=== PATIENT | male | born 1945 | race Caucasian/White ===

== ENCOUNTER 2017-12-12 16:13 | Inpatient (IN) | payer MEDICARE ==
[~2017-12-12] VITALS: Ht 162.6 cm; Wt 70.1 kg
[~2017-12-12 16:13] MED LIST: COZAAR100 MG PO; INVOKANA100 MG PO; JARDIANCE25 MG PO; LEVAQUIN750 MG PO; LEVOXYL25 MCG PO; PERCOCET 10/3251 TA1 PO; TRESIBA; tresiba INJ
[2017-12-12 18:09] LABS: EOSINOPHILS 1.9 % (0-7); HEMATOCRIT 34.1 % (42.0-54.0); HEMOGLOBIN 12.1 g/dL (13.5-17.5); IMMATURE GRANULOCYTES 0.3 % (0-5); LYMPHOCYTES 38.4 % (15-50); MCH 30.7 pg (26.0-34.0); MCHC 35.5 g/dL (31.0-37.0); MCV 86.5 fL (80.0-100.0); MEAN PLATELET VOLUME 9.4 fL (7.4-10.4); MONOCYTES 10.4 % (2-11); PLATELET COUNT 191 10x3/uL (130-400); RBC 3.94 10x6/uL (4.20-6.10); RDW 12.4 % (11.5-14.5); WBC 5.9 10x3/uL (4.8-10.8)
[2017-12-12 18:26] LABS: ALBUMIN 2.7 g/dL (3.4-5.0); ALKALINE PHOSPHATASE 91 U/L (46-116); ALT (SGPT) 70 U/L (10-68); CALC OSMOLALITY 274 mosm/kg (275-300); CALCIUM 8.1 mg/dL (8.5-10.1); CHLORIDE - SERUM 100 mmol/L (98-107); CREATININE - SERUM 0.7 mg/dL (0.6-1.3); GLUCOSE 289 mg/dL (74-106); POTASSIUM - SERUM 3.6 mmol/L (3.5-5.1); PROTEIN - SERUM 5.6 g/dL (6.4-8.2); SODIUM 132 mmol/L (136-145); UREA NITROGEN 11 mg/dL (7-18); eGFR NON AFRICAN AMERICAN > 90 mL/min (90-120)
[2017-12-12] MEDS ORDERED: EDARBYCLOR 40-1 EAC1 PO (19:39)
[2017-12-12] MEDS ORDERED: JANUMET XR 50-1 EACH PO (19:39)
[2017-12-12 20:00] VITALS: BP 110/57
[2017-12-12 22:48] LABS: APPEARANCE CLEAR (CLEAR); BILIRUBIN NEGATIVE (NEGATIVE); COLOR YELLOW (YELLOW); GLUCOSE 1000 mg/dL (NEGATIVE); KETONE NEGATIVE (NEGATIVE); NITRITE NEGATIVE (NEGATIVE); PROTEIN NEGATIVE (NEGATIVE); UROBILINOGEN NORMAL (NORMAL)
[2017-12-12 22:49] LABS: BACTERIA FEW /hpf (NONE SEEN); RED CELLS - URINE 0-5 /hpf (0-5); WHITE CELLS - URINE 0-5 /hpf (0-5); YEAST <1+ /hpf (NONE SEEN)
[2017-12-13 04:00] VITALS: BP 141/83
[2017-12-13 06:26] LABS: EOSINOPHILS 3.1 % (0-7); HEMATOCRIT 34.1 % (42.0-54.0); HEMOGLOBIN 12.4 g/dL (13.5-17.5); IMMATURE GRANULOCYTES 0.3 % (0-5); LYMPHOCYTES 41.8 % (15-50); MCH 31.5 pg (26.0-34.0); MCHC 36.4 g/dL (31.0-37.0); MCV 86.5 fL (80.0-100.0); MEAN PLATELET VOLUME 9.5 fL (7.4-10.4); MONOCYTES 6.7 % (2-11); NEUTROPHILS 47.1 % (40-80); PLATELET COUNT 177 10x3/uL (130-400); RBC 3.94 10x6/uL (4.20-6.10); RDW 12.6 % (11.5-14.5); WBC 5.9 10x3/uL (4.8-10.8)
[2017-12-13 06:43] LABS: CALC OSMOLALITY 274 mosm/kg (275-300); CALCIUM 8.1 mg/dL (8.5-10.1); CARBON DIOXIDE 28.9 mmol/L (21.0-32.0); CHLORIDE - SERUM 103 mmol/L (98-107); CREATININE - SERUM 0.6 mg/dL (0.6-1.3); POTASSIUM - SERUM 3.3 mmol/L (3.5-5.1); SODIUM 136 mmol/L (136-145); UREA NITROGEN 11 mg/dL (7-18); eGFR NON AFRICAN AMERICAN > 90 mL/min (90-120)
[2017-12-13 06:45] LABS: GLUCOSE 172 mg/dL (74-106)
[2017-12-13 09:03] VITALS: BP 157/91
[2017-12-13 11:04] VITALS: BP 136/77
[2017-12-13 13:08] LABS: CKMB 1.2 U/L (0.0-3.6); CREATINE KINASE 51 UL (21-232)
[2017-12-13 13:16] LABS: TROPONIN-I < 0.017 ng/mL (0.000-0.060)
[2017-12-13 13:22] VITALS: Ht 162.6 cm; Wt 70.1 kg
[2017-12-13 15:26] VITALS: BP 112/73
[2017-12-13 17:57] LABS: CKMB 0.9 U/L (0.0-3.6); CREATINE KINASE 55 UL (21-232)
[2017-12-13 17:58] LABS: TROPONIN-I < 0.017 ng/mL (0.000-0.060)
[2017-12-13 20:00] VITALS: BP 119/59
[2017-12-13 20:37] VITALS: BP 139/48
[2017-12-13 23:56] LABS: CKMB 0.8 U/L (0.0-3.6); CREATINE KINASE 42 UL (21-232)
[2017-12-13 23:57] LABS: TROPONIN-I < 0.017 ng/mL (0.000-0.060)
[2017-12-14] VITALS (7 sets, daily range): BP systolic 114–156; BP diastolic 69–85
[2017-12-14 06:26] LABS: BASOPHILS 1.3 % (0-2); EOSINOPHILS 3.3 % (0-7); HEMATOCRIT 36.3 % (42.0-54.0); HEMOGLOBIN 12.7 g/dL (13.5-17.5); IMMATURE GRANULOCYTES 0.3 % (0-5); LYMPHOCYTES 45.5 % (15-50); MCH 30.7 pg (26.0-34.0); MCV 87.7 fL (80.0-100.0); MEAN PLATELET VOLUME 9.9 fL (7.4-10.4); NEUTROPHILS 40.6 % (40-80); PLATELET COUNT 207 10x3/uL (130-400); RBC 4.14 10x6/uL (4.20-6.10); RDW 12.9 % (11.5-14.5); WBC 6.1 10x3/uL (4.8-10.8)
[2017-12-14 06:43] LABS: ALBUMIN 2.4 g/dL (3.4-5.0); ALKALINE PHOSPHATASE 83 U/L (46-116); ALT (SGPT) 62 U/L (10-68); BILIRUBIN - TOTAL 0.38 mg/dL (0.2-1.3); CALC OSMOLALITY 276 mosm/kg (275-300); CALCIUM 8.1 mg/dL (8.5-10.1); CARBON DIOXIDE 28.7 mmol/L (21.0-32.0); CHLORIDE - SERUM 105 mmol/L (98-107); CREATININE - SERUM 0.5 mg/dL (0.6-1.3); MAGNESIUM - SERUM 1.7 mg/dL (1.8-2.4); POTASSIUM - SERUM 3.5 mmol/L (3.5-5.1); PROTEIN - SERUM 5.3 g/dL (6.4-8.2); SODIUM 139 mmol/L (136-145); UREA NITROGEN 10 mg/dL (7-18); eGFR NON AFRICAN AMERICAN > 90 mL/min (90-120)
[2017-12-14 06:44] LABS: GLUCOSE 95 mg/dL (74-106)
[2017-12-14] MEDS ORDERED: KEFLEX500 MG PO (12:55)
== END 2017-12-14 16:20 | disposition home or self-care (01) | DRG 638 ==
LOC: D.M2 16:13
PROVIDERS: Emergency Medicine; Family Medicine
DX: E11.65 Type 2 diabetes mellitus with hyperglycemia (principal); N39.0 Urinary tract infection, site not specified; I10 Essential (primary) hypertension; L08.89 Other specified local infections of the skin and subcutaneous tissue; Z91.81 History of falling; R42 Dizziness and giddiness; E03.9 Hypothyroidism, unspecified

== ENCOUNTER → 2019-01-29 19:50 | Outpatient (CLI) | payer MEDICARE ==
[2017-12-13 13:22] VITALS: BMI 26.5
[~2019-01-29 19:50] MED LIST changes: +EDARBYCLOR 40-1 EAC1 PO; +JANUMET XR 50-1 EACH PO; +KEFLEX500 MG PO
== END | disposition home or self-care (01) ==
LOC: D.LABREF 19:50
PROVIDERS: ATTEND Podiatrist Foot & Ankle Surgery
DX: M86.171 Other acute osteomyelitis, right ankle and foot (principal)

== ENCOUNTER → 2019-08-30 01:04 | Outpatient (CLI) | payer MEDICARE ==
[2017-12-13 13:22] VITALS: BMI 26.5
== END | disposition home or self-care (01) ==
LOC: D.LABREF 01:04
PROVIDERS: ATTEND Podiatrist Foot & Ankle Surgery
DX: L97.516 Non-pressure chronic ulcer of other part of right foot with bone involvement without evidence of necrosis (principal); E11.621 Type 2 diabetes mellitus with foot ulcer

== ENCOUNTER 2019-09-09 05:37 | Day surgery (SDC) | payer MEDICARE ==
[~2019-09-09] VITALS: Ht 162.6 cm; Wt 70.3 kg
[2019-09-09 06:08] LABS: HEMATOCRIT 37.8 % (42.0-54.0); HEMOGLOBIN 12.6 g/dL (13.5-17.5); MCH 29.2 pg (26.0-34.0); MCHC 33.3 g/dL (31.0-37.0); MCV 87.5 fL (80.0-100.0); RBC 4.32 10x6/uL (4.20-6.10); RDW 12.5 % (11.5-14.5); WBC 8.5 10x3/uL (4.8-10.8)
[2019-09-09 06:21] LABS: CALC OSMOLALITY 272 mosm/kg (275-300); CALCIUM 8.9 mg/dL (8.5-10.1); CHLORIDE - SERUM 97 mmol/L (98-107); CREATININE - SERUM 0.8 mg/dL (0.6-1.3); POTASSIUM - SERUM 4.1 mmol/L (3.5-5.1); SODIUM 132 mmol/L (136-145); UREA NITROGEN 16 mg/dL (7-18); eGFR NON AFRICAN AMERICAN > 90 mL/min (90-120)
[2019-09-09 06:22] LABS: GLUCOSE 224 mg/dL (74-106)
[2019-09-09] MEDS ORDERED: IBUPROFEN600 MG PO (06:32)
[2019-09-09] MEDS ORDERED: JANUMET 50-1,01 EAC1 PO (06:32)
[2019-09-09] MEDS ORDERED: BACTRIM DS TAB1 EAC1 PO (06:33)
[2019-09-09] MEDS ORDERED: SOLIQUA 100 UNIT3 ML SQ (06:34)
[2019-09-09] MEDS ORDERED: APIDRA SOL100 UNIT/1 SQ (06:34)
[2019-09-09] MEDS ORDERED: NUFOLA (06:34)
[2019-09-09 07:03] VITALS: BP 183/95; Ht 162.6 cm; Wt 70.3 kg
--- NOTE | 2019-09-09 10:39 | NUR ---
1020 PT IS DRESSED AND HIS RIDE IS HERE RELEASED IN WC TO FRONT, REVIEWED WITH HIS RIDE HIS DC INSTRUCTIONS.
== END 2019-09-09 10:20 | disposition home or self-care (01) ==
LOC: D.OPS 05:37 → D.PAN 07:00 → D.OPS 10:20
PROVIDERS: Anesthesiology; ATTEND Podiatrist Foot & Ankle Surgery
DX: L03.115 Cellulitis of right lower limb (principal); I96 Gangrene, not elsewhere classified; M86.9 Osteomyelitis, unspecified; E11.9 Type 2 diabetes mellitus without complications

== ENCOUNTER 2019-11-01 17:21 | Emergency (ER) | payer MEDICARE ==
[~2019-11-01] VITALS: Ht 162.6 cm; Wt 68.2 kg
[~2019-11-01 17:21] MED LIST changes: +APIDRA SOL100 UNIT/1 SQ; +BACTRIM DS TAB1 EAC1 PO; +IBUPROFEN600 MG PO; +JANUMET 50-1,01 EAC1 PO; +NUFOLA; +SOLIQUA 100 UNIT3 ML SQ
[2019-11-01 17:46] VITALS: Ht 162.6 cm; Wt 68.2 kg
[2019-11-01 18:19] LABS: BASOPHILS 0.4 % (0-2); EOSINOPHILS 0.5 % (0-7); HEMATOCRIT 37.3 % (42.0-54.0); HEMOGLOBIN 12.7 g/dL (13.5-17.5); LYMPHOCYTES 17.4 % (15-50); MCH 29.4 pg (26.0-34.0); MCV 86.3 fL (80.0-100.0); MEAN PLATELET VOLUME 9.2 fL (7.4-10.4); MONOCYTES 6.8 % (2-11); NEUTROPHILS 74.9 % (40-80); PLATELET COUNT 245 10x3/uL (130-400); RBC 4.32 10x6/uL (4.20-6.10); RDW 13.5 % (11.5-14.5); WBC 5.6 10x3/uL (4.8-10.8)
[2019-11-01 18:28] LABS: CALC OSMOLALITY 280 mosm/kg (275-300); CALCIUM 8.8 mg/dL (8.5-10.1); CARBON DIOXIDE 32.4 mmol/L (21.0-32.0); CHLORIDE - SERUM 97 mmol/L (98-107); CREATININE - SERUM 0.8 mg/dL (0.6-1.3); GLUCOSE 197 mg/dL (74-106); POTASSIUM - SERUM 3.1 mmol/L (3.5-5.1); SODIUM 137 mmol/L (136-145); UREA NITROGEN 17 mg/dL (7-18); eGFR NON AFRICAN AMERICAN > 90 mL/min (90-120)
[2019-11-01 18:34] LABS: ALBUMIN 3.1 g/dL (3.4-5.0); ALKALINE PHOSPHATASE 113 U/L (30-120); ALT (SGPT) 37 U/L (10-68); AMYLASE - SERUM 23 U/L (25-115); PROTEIN - SERUM 7.3 g/dL (6.4-8.2)
[2019-11-01 18:36] LABS: LIPASE 11 U/L (73-393)
[2019-11-01] MEDS ORDERED: MIRALAX17 GM PO (20:40)
[2019-11-01 20:55] VITALS: BP 133/76
== END 2019-11-01 20:55 | disposition home or self-care (01) ==
LOC: D.ER 17:21
PROVIDERS: Family Medicine
DX: K59.00 Constipation, unspecified (principal); R10.9 Unspecified abdominal pain; E11.9 Type 2 diabetes mellitus without complications; E03.9 Hypothyroidism, unspecified; Z79.4 Long term (current) use of insulin; R11.10 Vomiting, unspecified

== ENCOUNTER 2019-11-05 09:50 | Inpatient (IN) | payer MEDICARE ==
[~2019-11-05] VITALS: Ht 162.6 cm; Wt 61.2 kg
[~2019-11-05 09:50] MED LIST changes: +MIRALAX17 GM PO; -NUFOLA; +NUFOLA PO
[2019-11-05] MEDS ORDERED: AMITIZA24 MCG PO (10:06)
[2019-11-05] MEDS ORDERED: VALTREX1000 MG PO (10:06)
[2019-11-05] MEDS ORDERED: XIGDUO XR PO (10:07)
[2019-11-05] MEDS ORDERED: XIGDUO XR 5 MG1 EAC1 (10:08)
[2019-11-05 11:09] LABS: BASOPHILS 0.5 % (0-2); EOSINOPHILS 0 % (0-7); HEMATOCRIT 38.8 % (42.0-54.0); HEMOGLOBIN 13.2 g/dL (13.5-17.5); IMMATURE GRANULOCYTES 0.3 % (0-5); LYMPHOCYTES 16.9 % (15-50); MCH 29.2 pg (26.0-34.0); MCV 85.8 fL (80.0-100.0); MEAN PLATELET VOLUME 8.8 fL (7.4-10.4); MONOCYTES 15.9 % (2-11); NEUTROPHILS 66.4 % (40-80); PLATELET COUNT 209 10x3/uL (130-400); RBC 4.52 10x6/uL (4.20-6.10); RDW 13.3 % (11.5-14.5); WBC 6.6 10x3/uL (4.8-10.8)
[2019-11-05 11:15] LABS: CALC OSMOLALITY 264 mosm/kg (275-300); CALCIUM 8.4 mg/dL (8.5-10.1); CARBON DIOXIDE 33.5 mmol/L (21.0-32.0); CHLORIDE - SERUM 89 mmol/L (98-107); CREATININE - SERUM 0.9 mg/dL (0.6-1.3); POTASSIUM - SERUM 3.5 mmol/L (3.5-5.1); SODIUM 124 mmol/L (136-145); UREA NITROGEN 20 mg/dL (7-18); eGFR NON AFRICAN AMERICAN 88 mL/min (90-120)
[2019-11-05 11:16] LABS: GLUCOSE 314 mg/dL (74-106)
[2019-11-05 11:30] LABS: ALBUMIN 3.1 g/dL (3.4-5.0); ALKALINE PHOSPHATASE 101 U/L (30-120); ALT (SGPT) 29 U/L (10-68); CREATINE KINASE 97 UL (21-232); PROTEIN - SERUM 7.1 g/dL (6.4-8.2); THYROID STIMULATING HORMONE 2.42 uIU/mL (0.36-3.74); TROPONIN-I < 0.017 ng/mL (0.000-0.060)
[2019-11-05 11:31] LABS: LIPASE 15 U/L (73-393)
[2019-11-05 12:00] VITALS: BP 157/85
--- NOTE | 2019-11-05 13:00 | NUR ---
FSBS 301
--- NOTE | 2019-11-05 13:21 | NUR ---
BLADDER SCAN SHOWED 669 ML OF URINE
[2019-11-05 13:53] LABS: BILIRUBIN NEGATIVE (NEGATIVE); KETONE NEGATIVE (NEGATIVE); NITRITE NEGATIVE (NEGATIVE); UROBILINOGEN NORMAL (NORMAL)
[2019-11-05 14:05] VITALS: BP 126/87
--- NOTE | 2019-11-05 14:15 | NUR ---
REPORT CALLED TO HESHAM ELLISON. REPORTED SHINGLES AND READIED PT FOR TRANSPORT FOR ISOLATION.
[2019-11-05 15:51] VITALS: BP 126/88; BMI 23.2
[2019-11-05 17:26] VITALS: BP 102/60
--- NOTE | 2019-11-05 19:23 | NUR ---
REPORT RECEIVED, WILL CONTINUE POC. PATIENT IS AAOX4, SITTING UP IN BED. NO S/S OF DISTRESS OBSERVED, RR EVEN AND UNLABORED ON ROOM AIR. PIV TO LT HAND INFUSING NS @ 75ML/HR. PATIENT DENIES NEEDS AT THIS TIME. CL IN REACH, BED LOCKED AND LOWERED. DROPLET PRECAUTIONS MAINTAINED. WILL CTM.
[2019-11-05 22:45] VITALS: BP 135/75
[2019-11-06 04:00] VITALS: BP 123/75
[2019-11-06 05:11] LABS: BASOPHILS 0.7 % (0-2); EOSINOPHILS 0.4 % (0-7); HEMATOCRIT 38.4 % (42.0-54.0); HEMOGLOBIN 12.9 g/dL (13.5-17.5); IMMATURE GRANULOCYTES 0.4 % (0-5); LYMPHOCYTES 25.8 % (15-50); MCH 28.9 pg (26.0-34.0); MCHC 33.6 g/dL (31.0-37.0); MCV 85.9 fL (80.0-100.0); MEAN PLATELET VOLUME 9.1 fL (7.4-10.4); MONOCYTES 17.8 % (2-11); NEUTROPHILS 54.9 % (40-80); PLATELET COUNT 207 10x3/uL (130-400); RBC 4.47 10x6/uL (4.20-6.10); RDW 13.5 % (11.5-14.5)
[2019-11-06 05:27] LABS: WBC 8.3 10x3/uL (4.8-10.8)
[2019-11-06 05:32] LABS: CALC OSMOLALITY 258 mosm/kg (275-300); CALCIUM 8.3 mg/dL (8.5-10.1); CARBON DIOXIDE 33.2 mmol/L (21.0-32.0); CHLORIDE - SERUM 92 mmol/L (98-107); CREATININE - SERUM 0.8 mg/dL (0.6-1.3); MAGNESIUM - SERUM 1.9 mg/dL (1.8-2.4); PHOSPHOROUS 2.9 mg/dL (2.5-4.9); POTASSIUM - SERUM 3.7 mmol/L (3.5-5.1); SODIUM 128 mmol/L (136-145); UREA NITROGEN 18 mg/dL (7-18); eGFR NON AFRICAN AMERICAN > 90 mL/min (90-120)
[2019-11-06 05:47] LABS: GLUCOSE 107 mg/dL (74-106)
[2019-11-06 10:21] VITALS: BP 100/52
[2019-11-06 12:40] VITALS: Ht 162.6 cm; Wt 61.2 kg
--- NOTE | 2019-11-06 19:15 | NUR ---
REPORT RECEIVED, WILL CONTINUE POC. PATIENT IS AAOX4, LYING IN SEMI-FOWLERS POSITION. NO S/S OF DISTRESS OBSERVED, RR EVEN AND UNLABORED ON ROOM AIR. PIV TO LT HAND, INFUSING NS @ 75ML/HR. F/C PRESENT, PATENT, DRAINING CONCENTRATED URINE. PATIENT DENIES NEEDS AT THIS TIME. AIRBORNE PRECAUTIONS MAINTAINED. CL IN REACH, BED LOCKED AND LOWERED. WILL CTM.
[2019-11-06 20:00] VITALS: BP 152/60
[2019-11-07 00:10] VITALS: BP 160/69
[2019-11-07 04:00] VITALS: BP 153/77
[2019-11-07 05:24] LABS: BASOPHILS 0.6 % (0-2); EOSINOPHILS 0.6 % (0-7); HEMATOCRIT 36.4 % (42.0-54.0); HEMOGLOBIN 12.3 g/dL (13.5-17.5); IMMATURE GRANULOCYTES 0.3 % (0-5); LYMPHOCYTES 28.5 % (15-50); MCH 29.1 pg (26.0-34.0); MCHC 33.8 g/dL (31.0-37.0); MCV 86.1 fL (80.0-100.0); MEAN PLATELET VOLUME 9.4 fL (7.4-10.4); MONOCYTES 9.7 % (2-11); NEUTROPHILS 60.3 % (40-80); PLATELET COUNT 222 10x3/uL (130-400); RBC 4.23 10x6/uL (4.20-6.10); RDW 13.6 % (11.5-14.5); WBC 6.9 10x3/uL (4.8-10.8)
[2019-11-07 05:55] LABS: CALC OSMOLALITY 276 mosm/kg (275-300); CALCIUM 8.2 mg/dL (8.5-10.1); CARBON DIOXIDE 28.4 mmol/L (21.0-32.0); CHLORIDE - SERUM 101 mmol/L (98-107); CREATININE - SERUM 0.7 mg/dL (0.6-1.3); GLUCOSE 86 mg/dL (74-106); MAGNESIUM - SERUM 1.7 mg/dL (1.8-2.4); PHOSPHOROUS 2.9 mg/dL (2.5-4.9); POTASSIUM - SERUM 4.1 mmol/L (3.5-5.1); SODIUM 138 mmol/L (136-145); UREA NITROGEN 17 mg/dL (7-18); eGFR NON AFRICAN AMERICAN > 90 mL/min (90-120)
[2019-11-07 08:00] VITALS: BP 189/87
[2019-11-07 12:00] VITALS: BP 154/80
[2019-11-07 16:00] VITALS: BP 121/53
--- NOTE | 2019-11-07 18:00 | NUR ---
SPOKE WITH DAUGHTER IN LAW OF PT. SHE EXPRESSES CONCERN ABOUT THE PT'S FUTURE DISCHARGE.
--- NOTE | 2019-11-07 19:17 | NUR ---
RECIEVED UP IN BED WITH EYES OPEN AND TV ON. ALERT AND ORIENTED X4. UP AD THOMAS. IV TO LT HAND WITH NS AT 75CC/HR. NO SWELLING OR REDNESS TO SITE. F/C [id number] WITH CLEAR YELLOW URINE DRAINING TO BEDSIDE DRAINAGE BAG. REPORTED A LARGE BM YESTERDAY AND TODAY. REMAINS IN ISOLATION D/Y SHINGLES. DENIES ANY NEEDS AT THIS TIME.
[2019-11-07 20:00] VITALS: BP 148/75
[2019-11-08] VITALS: BP 173/82
[2019-11-08 04:00] VITALS: BP 164/73
[2019-11-08 05:00] LABS: BASOPHILS 0.5 % (0-2); EOSINOPHILS 1.1 % (0-7); HEMOGLOBIN 11.8 g/dL (13.5-17.5); IMMATURE GRANULOCYTES 0.2 % (0-5); LYMPHOCYTES 25.9 % (15-50); MCH 28.8 pg (26.0-34.0); MCHC 33.7 g/dL (31.0-37.0); MCV 85.4 fL (80.0-100.0); MEAN PLATELET VOLUME 8.9 fL (7.4-10.4); MONOCYTES 9.9 % (2-11); NEUTROPHILS 62.4 % (40-80); PLATELET COUNT 235 10x3/uL (130-400); RDW 13.4 % (11.5-14.5); WBC 6.4 10x3/uL (4.8-10.8)
[2019-11-08 05:13] LABS: CALCIUM 7.8 mg/dL (8.5-10.1); CARBON DIOXIDE 28.7 mmol/L (21.0-32.0); CHLORIDE - SERUM 98 mmol/L (98-107); CREATININE - SERUM 0.7 mg/dL (0.6-1.3); GLUCOSE 109 mg/dL (74-106); MAGNESIUM - SERUM 1.4 mg/dL (1.8-2.4); PHOSPHOROUS 2.3 mg/dL (2.5-4.9); SODIUM 134 mmol/L (136-145); eGFR NON AFRICAN AMERICAN > 90 mL/min (90-120)
[2019-11-08 05:21] LABS: CALC OSMOLALITY 267 mosm/kg (275-300); POTASSIUM - SERUM 3.3 mmol/L (3.5-5.1); UREA NITROGEN 11 mg/dL (7-18)
[2019-11-08 09:02] VITALS: BP 171/91
--- NOTE | 2019-11-08 13:30 | NUR ---
REHAB PRESCREENING Rehab referral received and chart reviewed. Family requested let patient rest yesterday instead of having PT. Rehab will follow patient for gait with PT in order assess admission criteria. Thank you for this referral! Susan Orellana, LOADER TECHNICIAN Rehab PD
[2019-11-08 14:53] VITALS: BP 152/83
[2019-11-08 18:06] VITALS: BP 135/90
--- NOTE | 2019-11-08 19:17 | NUR ---
RECIEVED UP IN BED WITH EYES OPENA ND TV ON. ALERT AND ORIETNED X4. REMAINS BEDFAST. CONTINUES TO BE IN ISOLATION. F/C INTACT WITH CLEAR YELLOW URINE DRAINING TO BEDSIDE DRAINAGE BAG. DENIES ANY NEEDS AT THIS TIME.
[2019-11-08 20:00] VITALS: BP 155/82
[2019-11-09 00:01] VITALS: BP 143/76
[2019-11-09 04:00] VITALS: BP 165/85
[2019-11-09 04:58] LABS: BASOPHILS 0.5 % (0-2); EOSINOPHILS 1.7 % (0-7); HEMATOCRIT 34.3 % (42.0-54.0); HEMOGLOBIN 11.7 g/dL (13.5-17.5); IMMATURE GRANULOCYTES 0.3 % (0-5); LYMPHOCYTES 31.1 % (15-50); MCH 29.3 pg (26.0-34.0); MCHC 34.1 g/dL (31.0-37.0); MCV 85.8 fL (80.0-100.0); MEAN PLATELET VOLUME 8.9 fL (7.4-10.4); MONOCYTES 7.5 % (2-11); NEUTROPHILS 58.9 % (40-80); PLATELET COUNT 188 10x3/uL (130-400); RDW 13.5 % (11.5-14.5); WBC 5.9 10x3/uL (4.8-10.8)
[2019-11-09 05:07] LABS: CALC OSMOLALITY 262 mosm/kg (275-300); CALCIUM 8.1 mg/dL (8.5-10.1); CARBON DIOXIDE 30.1 mmol/L (21.0-32.0); CHLORIDE - SERUM 100 mmol/L (98-107); CREATININE - SERUM 0.6 mg/dL (0.6-1.3); GLUCOSE 88 mg/dL (74-106); MAGNESIUM - SERUM 1.7 mg/dL (1.8-2.4); PHOSPHOROUS 2.8 mg/dL (2.5-4.9); POTASSIUM - SERUM 3.5 mmol/L (3.5-5.1); SODIUM 133 mmol/L (136-145); UREA NITROGEN 6 mg/dL (7-18); eGFR NON AFRICAN AMERICAN > 90 mL/min (90-120)
--- NOTE | 2019-11-09 06:21 | NUR ---
IV CAME OUT LAST NIGHT. RESTARTED 22GA TO RT HAND X1 ATTEMPT. NO REDNESS OR SWELLING TO SITE.
[2019-11-09 08:00] VITALS: BP 158/80
--- NOTE | 2019-11-09 08:06 | NUR ---
DELIVERED BREAKFAST TRAY TO PT, PERSONAL ITEMS WITHIN REACH. CALL LIGHT WITHIN REACH.
[2019-11-09 12:00] VITALS: BP 164/91
[2019-11-09 16:00] VITALS: BP 176/103
[2019-11-09 20:00] VITALS: BP 154/88
[2019-11-10] VITALS: BP 146/89
[2019-11-10 04:00] VITALS: BP 182/100
[2019-11-10 06:37] LABS: CALCIUM 8.1 mg/dL (8.5-10.1); CARBON DIOXIDE 31.9 mmol/L (21.0-32.0); CHLORIDE - SERUM 98 mmol/L (98-107); CREATININE - SERUM 0.7 mg/dL (0.6-1.3); MAGNESIUM - SERUM 1.5 mg/dL (1.8-2.4); POTASSIUM - SERUM 3.7 mmol/L (3.5-5.1); SODIUM 134 mmol/L (136-145); eGFR NON AFRICAN AMERICAN > 90 mL/min (90-120)
[2019-11-10 06:39] LABS: CALC OSMOLALITY 268 mosm/kg (275-300); GLUCOSE 138 mg/dL (74-106); UREA NITROGEN 9 mg/dL (7-18)
[2019-11-10 06:46] LABS: BASOPHILS 0.6 % (0-2); EOSINOPHILS 1.8 % (0-7); HEMATOCRIT 35.8 % (42.0-54.0); HEMOGLOBIN 12.4 g/dL (13.5-17.5); IMMATURE GRANULOCYTES 0.4 % (0-5); LYMPHOCYTES 32.5 % (15-50); MCH 29.6 pg (26.0-34.0); MCHC 34.6 g/dL (31.0-37.0); MCV 85.4 fL (80.0-100.0); MEAN PLATELET VOLUME 9.2 fL (7.4-10.4); NEUTROPHILS 57.7 % (40-80); RBC 4.19 10x6/uL (4.20-6.10); RDW 13.6 % (11.5-14.5); WBC 5.4 10x3/uL (4.8-10.8)
[2019-11-10 07:08] LABS: PLATELET COUNT 234 10x3/uL (130-400)
[2019-11-10 09:54] VITALS: BP 149/79
--- NOTE | 2019-11-10 10:37 | NUR ---
Nutrition Follow-up: Pt in airborne isolation. Chart reviewed. Eating well. Diet: Diabetic PO intake: 92% avg x 9 meals Wt: 135# (11/05) Last BM: 11/07 per chart Labs noted: Na 134, Glu 138, Ca 8.1, Mg 1.5 Meds noted: Protonix, Glucophage, Humalog, Miralax, Sodium Chloride, NS @ 75, electrolyte protocol -Encourage PO intake and honor food preferences within diet restrictions. -Monitor wt. -RD following.
--- NOTE | 2019-11-10 12:09 | MORECARE ---
CASE MANAGEMENT DISCHARGE SUMMARY PATIENT: MARYANN CARBAJAL [facility] UNIT: [id number] ADM DATE: 11/05/19 AGE: 74 : 45 SEX: M ROOM/BED: D.2101 AUTHOR: BERONICA COURTNEY PHYSICIAN: REFERRING PHYSICIAN: SONYA MCCLENDNO MD DATE OF SERVICE: 11/10/19 Discharge Plan Patient Name: MARYANN CARABJAL Facility: [facility]:[place] : 1945 Planned Disposition: Inpatient Rehab Anticipated Discharge Date: 11/10/19 Discharge Date: Expected LOS: 5 Initial Reviewer: [email or web address] Initial Review Date: 11/10/2019 Generated: 11/10/19 1:09 pm Patient Name: MARYANN CARBAJAL Page [phone] at 1209 All edits/amendments must be made on the electronic document DICTATION DATE: 11/10/19 1209 MONUMENT STONECUTTER: GABBY 11/10/19 1209 RPT#: [id number] DC DATE: STATUS: ADM IN [facility] [address] [place] [address] END OF REPORT
--- NOTE | 2019-11-10 12:16 | MORECARE ---
CASE MANAGEMENT DISCHARGE SUMMARY PATIENT: MARYANN CARBAJALMONTE UNIT: [id number] ADM DATE: 11/05/19 AGE: 74 : 45 SEX: M ROOM/BED: D.2101 AUTHOR: BERONICA COURTNEY PHYSICIAN: REFERRING PHYSICIAN: SONYA MCCLENDON MD DATE OF SERVICE: 11/10/19 Discharge Plan Patient Name: MARYANN CARBAJAL Facility: [facility]:[place] : 1945 Planned Disposition: Inpatient Rehab Anticipated Discharge Date: 11/10/19 Discharge Date: Expected LOS: 5 Initial Reviewer: [email or web address] Initial Review Date: 11/10/2019 Generated: 11/10/19 1:16 pm Comments DCP- Discharge Planning Updated by [email or web address]: Sheryl Starr on 11/10/19 11:[address] Patient Name: MARYANN CARBAJAL Admission Status: ER Accout number: [id number] Admission Date: 11-05-2019 : 1945 Admission Diagnosis:WEAKNESS Attending: SONYA MCCLENDON Current LOS: 5 Anticipated DC Date: 11-10-2019 Planned Disposition: Inpatient Rehab Primary Insurance: MEDICARE A & B Discharge Planning Comments: Patient is in isolation. I asked his nurse to go into the room and ask her his discharge plan. He agrees to inpatient rehab at [facility] and wants rehab. A referral has been sent and I spoke with Catalina with inpatient rehab and they will accept today. I notified Job Mckeon APN. Power Plant Superintendent: Sheryl Starr Coverage Notice Reviewer: [id number] - Sheryl Starr Notice Issued Date-Time: 11/10/2019 12:10 Notice Type: Patient Choice Letter Notice Delivered To: Patient Relationship to Patient: Self Coffee Bar Attendant Name: Delivery Method: HAND - Hand Delivered Shania Days: Prior Verbal Notification: Recipient Understood Notice: Yes Recipient Signature: Med Rec Note Co-signed by Attending: Coverage Notice Comment: unable to get patient signature since he is in Isolation per policy. JOSUÉ for inpatient rehab at [facility] Last DP export: 11/10/19 11:09 a Patient Name: MARYANN CARBAJAL Page [phone] at 1216 All edits/amendments must be made on the electronic document DICTATION DATE: 11/10/19 1216 DOCKETING SPECIALIST: GABBY 11/10/19 1216 RPT#: [id number] DC DATE: STATUS: ADM IN [facility] [address] [place] [address] END OF REPORT
[2019-11-10] MEDS ORDERED: THERMOTABS 1 GM1 GM PO (12:35)
[2019-11-10] MEDS ORDERED: Eucerin CREAM TOPICAL (12:36)
[2019-11-10] MEDS ORDERED: FLOMAX0.4 MG PO (12:41)
[2019-11-10 13:09] VITALS: BP 108/64
--- NOTE | 2019-11-10 18:30 | NUR ---
PT TRANSFERRED TO REHAB VIA WHEELCHAIR. PT BELONGINGS PACKED AND TRANSPORTED WITH PT.
--- NOTE | 2019-11-10 20:30 | NUR ---
ADMIT HERE FOR PHYSICAL REHAB AND SERVICES OF DR ENG. AWAKE AND ALERT. ORIENTED X 4. COMPLETELY DEAF. USES PEN AND PAPER TO COMMUNICATE. CURRENTLY HAS SHINGLES. ISOLATION IN PLACE. SEE ADMISSION ASSESSMENT. NO ACUTE DISTRESS NOTED. CALL LIGHT IN REACH.
--- NOTE | 2019-11-11 08:19 | MORECARE ---
CASE MANAGEMENT DISCHARGE SUMMARY PATIENT: MARYANN CARBAJALMONTE UNIT: [id number] ADM DATE: 11/05/19 AGE: 74 : 45 SEX: M ROOM/BED: D.1111 AUTHOR: BERONICA COURTNEY PHYSICIAN: REFERRING PHYSICIAN: SONYA MCCLENDON MD DATE OF SERVICE: 11/11/19 Discharge Plan Patient Name: MARYANN CARBAJAL Facility: [facility]:[place] : 1945 Planned Disposition: Inpatient Rehab Anticipated Discharge Date: 11/10/19 Discharge Date: 11/10/2019 Expected LOS: 5 Initial Reviewer: [email or web address] Initial Review Date: 11/10/2019 Generated: 11/11/19 9:19 am Comments DCP- Discharge Planning Updated by [email or web address]: Sheryl Starr on 11/10/19 11:[address] Patient Name: MARYANN CARBAJAL Admission Status: ER Accout number: [id number] Admission Date: 11-05-2019 : 1945 Admission Diagnosis:WEAKNESS Attending: SONYA MCCLENDON Current LOS: 5 Anticipated DC Date: 11-10-2019 Planned Disposition: Inpatient Rehab Primary Insurance: MEDICARE A & B Discharge Planning Comments: Patient is in isolation. I asked his nurse to go into the room and ask her his discharge plan. He agrees to inpatient rehab at [facility] and wants rehab. A referral has been sent and I spoke with Catalina with inpatient rehab and they will accept today. I notified Job Mckeon APN. Senior Integration Architect: Sheryl Starr Coverage Notice Reviewer: [id number] - Sheryl Starr Notice Issued Date-Time: 11/10/2019 12:10 Notice Type: Patient Choice Letter Notice Delivered To: Patient Relationship to Patient: Self Dredge Mate Name: Delivery Method: HAND - Hand Delivered Shania Days: Prior Verbal Notification: Recipient Understood Notice: Yes Recipient Signature: Med Rec Note Co-signed by Attending: Coverage Notice Comment: unable to get patient signature since he is in Isolation per policy. JOSUÉ for inpatient rehab at [facility] Last DP export: 11/10/19 11:16 a Patient Name: MARYANN CARBAJAL Page [phone] at 0819 All edits/amendments must be made on the electronic document DICTATION DATE: 11/11/19818 KNITTER HAND: GABBY 11/11/19818 RPT#: [id number] DC DATE:11/10/19 STATUS: DIS IN [facility] [address] [place] [address] END OF REPORT
== END 2019-11-10 07:00 | DRG 638 ==
LOC: D.ER 09:50 → D.M2 12:20 → D.REHAB 11-10 19:13
PROVIDERS: Emergency Medicine; ADMIT Family Medicine; ATTEND Family Medicine
DX: E11.65 Type 2 diabetes mellitus with hyperglycemia (principal); E87.1 Hypo-osmolality and hyponatremia; Z91.81 History of falling; I10 Essential (primary) hypertension; B02.9 Zoster without complications; R33.9 Retention of urine, unspecified; K59.00 Constipation, unspecified; E87.6 Hypokalemia

== ENCOUNTER 2019-11-10 19:09 | Inpatient (IN) | payer MEDICARE ==
[~2019-11-10] VITALS: Ht 162.6 cm; Wt 61.2 kg
[~2019-11-10 19:09] MED LIST changes: +AMITIZA24 MCG PO; +Eucerin CREAM TOPICAL; +FLOMAX0.4 MG PO; +THERMOTABS 1 GM1 GM PO; +VALTREX1000 MG PO; +XIGDUO XR 5 MG1 EAC1; +XIGDUO XR PO
--- NOTE | 2019-11-10 20:36 | NUR ---
ADMIT FOR PHYSICAL REHAB AND SERVICES OF DR ENG. AWAKE AND ALERT. COMPLETELY DEAF. USES PEN AND PAPER TO COMMUNICATE. ISOLATION IN PLACE RELATED TO SHINGLES. SEE ADMISSION ASSESMENT. RESTING WITH RESPIRAITONS UNLABORED. NO DISTRESS NOTED. CALL LIGHT IN REACH.
[2019-11-10 21:14] VITALS: BP 91/52
[2019-11-10 22:28] VITALS: BP 91/52; BMI 23.2
--- NOTE | 2019-11-11 00:10 | NUR ---
RESTING QUIETLY IN BED. HAS PEN AND PAD NEAR. CAN DEMONSTRATE USE OF CALL LIGHT. NO ACUTE DISTRESS NOTED. THAI PATENT.
--- NOTE | 2019-11-11 03:06 | NUR ---
CONTINUES SLEEPING WITH NO DISTRESS NOTED. RESPIRATIONS UNLABORED.
--- NOTE | 2019-11-11 05:30 | NUR ---
QUIET HOURS. SLEPT MOST OF SHIFT. RESPIRATIONS UNLABORED. CALL LIGHT IN REACH.
[2019-11-11 05:42] LABS: BILIRUBIN NEGATIVE (NEGATIVE); KETONE MODERATE mg/dL (NEGATIVE); NITRITE NEGATIVE (NEGATIVE); UROBILINOGEN NORMAL (NORMAL)
[2019-11-11 05:44] LABS: BACTERIA FEW /hpf (NONE SEEN); EPITHELIAL CELLS 0-5 /hpf (0-5); WHITE CELLS - URINE 0-5 /hpf (0-5)
--- NOTE | 2019-11-11 07:47 | NUR ---
PT RESTING IN BED WITH EYES OPEN CALL LIGHT IN REACH WILL MONITER
[2019-11-11 08:04] VITALS: BP 169/78
--- NOTE | 2019-11-11 10:00 | NUR ---
I have reviewed this patient and I concur with the Shift Assessment completed by the Licensed Practical Nurse today this shift.
[2019-11-11 13:18] VITALS: Ht 162.6 cm; Wt 61.2 kg
--- NOTE | 2019-11-11 15:59 | NUR ---
PATIENT ADMITTED TO [facility] FROM THE ACUTE FLOOR. DR. SANCHEZ IS HIS PCP. DISCHARGE PLANS ARE FOR HIM TO RETURN TO HIS HOME. WILL CONTINUE TO FOLLOW WITH PATIENT.
--- NOTE | 2019-11-11 18:33 | NUR ---
PT RESTING IN BED WITH EYES OPEN CALL LIGHT IN REACH NO PROBLEMS WILL MONITER
--- NOTE | 2019-11-11 19:15 | NUR ---
RECEIVED PT LYING IN BED EYES CLOSED RESTING. EASILY AROUSED WITH VERBAL STIMULI. DENIES ANY NEEDS OR PAIN. ALERT AND ORIENTED X4. F/C PATENT FREE FROM KINKS. COMMUNICATES USING PEN AND PAPER. CALL LIGHT WITHIN REACH. FALL PRECAUTIONS IN PLACE. CPOC
[2019-11-11 19:59] VITALS: BP 156/79
--- NOTE | 2019-11-11 23:15 | NUR ---
PLACED PT ON BEDPAN.
--- NOTE | 2019-11-11 23:48 | NUR ---
TOOK PT OFF BEDPAN SMALL SOFT FORMED BM. CLEANSED PT AND PLACED CLEAN BRIEF ON. EMPTIED 600ML YELLOW URINE FROM ANDRE. NO OTHER CONCERNS OR NEEDS VOICED. DENIES ANY PAIN. CALL LIGHT WITHIN REACH. FALL PRECAUTIONS IN PLACE. CPOC
--- NOTE | 2019-11-12 01:18 | NUR ---
PT LYING IN BED ON LEFT SIDE EYES CLOSED RESTING. NO SIGNS OF ACUTE DISTRESS NOTED. CALL LIGHT WITHIN REACH. WILL CONTINUE TO MONITOR
--- NOTE | 2019-11-12 04:14 | NUR ---
PT LYING IN BED ON RIGHT SIDE EYES CLOSED RESTING. RR EVEN AND UNLABORED. CALL LIGHT WITHIN REACH. WILL CONTINUE TO MONITOR
[2019-11-12 06:37] LABS: BASOPHILS 0.5 % (0-2); EOSINOPHILS 2.1 % (0-7); HEMATOCRIT 36.9 % (42.0-54.0); HEMOGLOBIN 12.7 g/dL (13.5-17.5); IMMATURE GRANULOCYTES 0.5 % (0-5); LYMPHOCYTES 31.3 % (15-50); MCH 29.6 pg (26.0-34.0); MCHC 34.4 g/dL (31.0-37.0); MEAN PLATELET VOLUME 9.2 fL (7.4-10.4); NEUTROPHILS 56.6 % (40-80); RBC 4.29 10x6/uL (4.20-6.10); RDW 13.9 % (11.5-14.5); WBC 6.5 10x3/uL (4.8-10.8)
[2019-11-12 06:38] LABS: PLATELET COUNT 287 10x3/uL (130-400)
[2019-11-12 07:41] LABS: CALC OSMOLALITY 272 mosm/kg (275-300); CALCIUM 8.3 mg/dL (8.5-10.1); CARBON DIOXIDE 31.9 mmol/L (21.0-32.0); CHLORIDE - SERUM 98 mmol/L (98-107); CREATININE - SERUM 0.6 mg/dL (0.6-1.3); GLUCOSE 162 mg/dL (74-106); POTASSIUM - SERUM 4.4 mmol/L (3.5-5.1); SODIUM 135 mmol/L (136-145); UREA NITROGEN 11 mg/dL (7-18); eGFR NON AFRICAN AMERICAN > 90 mL/min (90-120)
[2019-11-12 08:00] VITALS: BP 125/71
--- NOTE | 2019-11-12 13:51 | NUR ---
CARE TEAM MEETING: PATIENT IS NEW TO UNIT AND WILL BE RA AT NEXT MEETING. PATIENT IS PROGRESSING. WILL CONTINUE TO FOLLOW WITH PATIENT.
--- NOTE | 2019-11-12 17:14 | RHP ---
PATIENT: MARYANN CARBAJALMONTE MEDICAL RECORD: [id number] ACCOUNT: [id number] LOCATION:[facility] : [birth year] ADMISSION DATE: 11/10/19 REHABILITATION HISTORY AND PHYSICAL EXAMINATION POST ADMISSION PHYSICIAN EXAMINATION POST ADMISSION PHYSICAL EXAMINATION AND HISTORY AND PHYSICAL ADMITTING DIAGNOSIS: Debility. HISTORY OF PRESENT ILLNESS: The patient is a 74-year-old gentleman who is admitted secondary to muscular wasting and disuse atrophy, secondary to multiple falls, low sodium of 124. The patient came to the Emergency Room complaining of increasing weakness. He recently been seen by midlevel at our office and placed on Valtrex secondary to improved pretty severe case of varicella zoster, not been eating and drinking. He is also complaining of numbness and tingling to his distal extremities and lightheadedness without headache. The patient is deaf and unable to talk. He does sign. The patient has had increased malaise, generalized weakness, unable to stand. He has had some unintentional weight loss. The patient was previously independent with ADLs and mobility without aid. He lives with his family. Currently, he is mod-to-max assist for ADLs and mobility secondary to extreme weakness, especially in his lower extremities. He has got poor sitting balance and tends to lean backwards when sitting on side of bed. He needs to regain his strength in order to return home. COMORBIDITIES: Include chronic constipation, debility, difficulty in walking, dizziness, and hyperglycemia. PAST MEDICAL HISTORY: Significant for diabetes, got a history of osteomyelitis, superficial skin infections. PAST SURGICAL HISTORY: Includes gallbladder and foot surgery. ALLERGIES: No known drug allergies. CURRENT MEDICATIONS: Include Flomax 0.4 mg daily, metformin 1000 mg b.i.d., Januvia 50 mg b.i.d. He is on Amitiza 24 mcg b.i.d. He is on a glucose replacement protocol. He is on Soliqua 100/33, he takes 40 units daily. He is on Valtrex 1000 mg t.i.d. He is on polyethylene glycol 17 grams in 8 ounces of water daily. He is Motrin 600 mg q.6 hours p.r.n. and Eucerin cream. HABITS: No alcohol or tobacco use. FAMILY HISTORY: Noncontributory. SOCIAL HISTORY: The patient hopes to return back home and get back to his prior level of functioning. REVIEW OF SYSTEMS: GENERAL: Does complain of weakness and fatigue. HEENT: Denies cold, cough, or congestion. CARDIOVASCULAR: Denies any chest pain. PHYSICAL EXAMINATION: VITAL SIGNS: Stable, afebrile. HISTORY AND PHYSICAL [id number] MARYANN CARBAJAL GENERAL: A well-developed gentleman, somewhat thin upon exam. HEENT: Normocephalic and atraumatic. Mucosa moist. NECK: Supple. No lymphadenopathy. LUNGS: Clear in upper mathew. No wheezing or rales. HEART: Regular rate and rhythm. No murmurs, rubs or gallops. ABDOMEN: Soft, benign, and nondistended. Positive bowel sounds times 4. EXTREMITIES: No clubbing, cyanosis. Does have some bruising. NEUROLOGIC: He does have some proximal muscle weakness. LABORATORY DATA: Admit UA is essentially negative. ASSESSMENT: This is a 74-year-old female patient admitted to rehab with a working diagnosis of debility secondary to recent falls and also complications from varicella zoster. The patient has potential to make improvement. We instituted the following multidisciplinary therapies including, but not limited to physical, occupational, respiratory, speech, nutritional services, prosthetics and orthotics. Given her complex medical condition and risks for more complications, rehabilitation services cannot be provided at a low level of care such a skilled nurse facility. PLAN: 1. [facility] to include the following disciplines; A. Physical therapy to improve gait, all transfer skills and bed mobility to a modified independent level. B. Occupational therapy to improve activities of daily living. C. Case management to help with discharge planning and placement options. D. Nutrition to assist with nutritional needs. E. Rehabilitation nursing to assist in monitoring the patient's underlying medical conditions and to assist with any type of bowel or bladder management. 2. The patient's current medication and medical care will be continued. 3. Placed on standard fall precautions. 4. The patient's estimated length of stay is approximately 7-10 days. 5. We will discuss this patient during care team staff meeting this week. TRANSINT:[id number] Voice Confirmation ID: [id number] DOCUMENT ID: [id number] ALICJA notes whether there has been none or any medical/functional change since admission: - No change since prescreen. ALICJA attests patient continues to be appropriate for IRF: - Continues to be appropriate. HISTORY AND PHYSICAL [id number] MARYANN CARBAJAL,LUCIANO GOMEZ MD at 1714 CC: [id number] DICTATION DATE: 11/11/19 1207 [employer] [place]: 11/11/19 1354 ADM IN [facility] [address] [place] [address]
--- NOTE | 2019-11-12 19:25 | NUR ---
RECEIVED PT LYING IN BED ON LEFT SIDE AWAKE. ALERT AND ORIENTED X3. DENIES ANY PAIN OR NEEDS. ANDRE CATH PATENT FREE FROM KINKS. CALL LIGHT AND WATER WITHIN REACH. FALL PRECAUTIONS IN PLACE. WILL CONTINUE TO MONITOR
[2019-11-12 21:41] VITALS: BP 101/55
--- NOTE | 2019-11-13 01:14 | NUR ---
PT LYING IN BED EYES CLOSED RESTING QUIETLY. RR EVEN AND UNLABORED. CALL LIGHT WITHIN REACH. FALL PRECAUTIONS IN PLACE. CPOC
--- NOTE | 2019-11-13 06:37 | NUR ---
PT LYING IN BED ON LEFT SIDE EYES CLOSED RESTING QUIETLY. NO SIGNS OF ACUTE DISTRESS NOTED. CALL LIGHT WITHIN REACH. FALL PRECAUTIONS IN PLACE. CPOC
[2019-11-13 07:44] VITALS: BP 143/85
--- NOTE | 2019-11-13 09:05 | NUR ---
HE IS ALERT. HE HAS A ANDRE. DENIES ANY PAIN, BUT HAS SOME NAUSEA. THE CALL LIGHT IS WITHIN REACH.
--- NOTE | 2019-11-13 10:25 | NUR ---
Nutrition Follow-up: Chart reviewed. Noted MD monitoring Na and blood sugars. Diet: Diabetic PO intake: 100% x last 9 meals Last BM: 11/13/19 x 2. Wt: 135# (11/11/19) Meds noted: januvia, metformin, SSI, miralax Labs noted: POC Glu 166(H), Na 135(L)- 11/12/19 Recommend continue current diet. RD following.
--- NOTE | 2019-11-13 19:42 | NUR ---
PT GETTING PRBC'S, SON IN ROOM UPSET STATES NEEDS PRN PAIN MED CAN'T GET TO CALL HIM, STATES FATHER HAS SOMETHING NEW GOING WRONG EVERY DAY, SAYS EVERYBODY RUSHES IN AND OUT FATHER NOT BEING PROPERLY TAKEN CARE OF, PT HAS NO IMMEDIATE NEEDS AT THIS TIME, FALL PRECAUTIONS IN PLACE, RT COMING TO GIVE BREATHING TX AT SONS REQUEST NOT PT'S, FLUIDS/CALL LIGHT WITHIN REACH
--- NOTE | 2019-11-13 19:57 | NUR ---
PT ASLEEP NO NEEDS NOTED, RESPIRATIONS EVEN/UNLABORED, FALL PRECAUTIONS IN PLACE, FLUIDS/CALL LIGHT WITHIN REACH
[2019-11-14 07:22] LABS: BASOPHILS 0.4 % (0-2); EOSINOPHILS 0.4 % (0-7); HEMATOCRIT 38.6 % (42.0-54.0); HEMOGLOBIN 13.2 g/dL (13.5-17.5); IMMATURE GRANULOCYTES 0.4 % (0-5); LYMPHOCYTES 16.6 % (15-50); MCH 29.9 pg (26.0-34.0); MCHC 34.2 g/dL (31.0-37.0); MCV 87.5 fL (80.0-100.0); MEAN PLATELET VOLUME 9.2 fL (7.4-10.4); MONOCYTES 9.6 % (2-11); NEUTROPHILS 72.6 % (40-80); PLATELET COUNT 307 10x3/uL (130-400); RBC 4.41 10x6/uL (4.20-6.10); RDW 14.3 % (11.5-14.5); WBC 9.4 10x3/uL (4.8-10.8)
[2019-11-14 07:45] LABS: CALC OSMOLALITY 273 mosm/kg (275-300); CALCIUM 8.8 mg/dL (8.5-10.1); CARBON DIOXIDE 29.5 mmol/L (21.0-32.0); CHLORIDE - SERUM 100 mmol/L (98-107); CREATININE - SERUM 0.8 mg/dL (0.6-1.3); GLUCOSE 140 mg/dL (74-106); POTASSIUM - SERUM 4.1 mmol/L (3.5-5.1); SODIUM 135 mmol/L (136-145); UREA NITROGEN 19 mg/dL (7-18); eGFR NON AFRICAN AMERICAN > 90 mL/min (90-120)
[2019-11-14 08:29] VITALS: BP 157/81
--- NOTE | 2019-11-14 15:05 | NUR ---
RESTING QUIETLY IN BED. NO S/S DISTRESS, CALL LIGHT IN REACH
[2019-11-14 20:00] VITALS: BP 140/70
--- NOTE | 2019-11-14 20:00 | NUR ---
AWAKE AND ALERT. RESITNG IN BED WITH NO DISTRESS NOTED. SHINGLES AREA TO BODY DRY WITH NO DRAINAGE OR BLISTERS. PATIENT IS DEAF BUT COMMUNICATES WITH PAPER AND PEN. CALL LIGHT IN REACH.
--- NOTE | 2019-11-15 00:01 | NUR ---
SLEEPING WITH RESPIRATIONS UNLABORED. NO DISTRESS NOTED. CALL LIGHT IN REACH.
--- NOTE | 2019-11-15 05:26 | NUR ---
QUIET HOURS. NO ACUTE CHANGES IN CONDITION THIS SHIFT. BLADDER TRAINING ONGOING. NO ACUTE DISTRESS NOTED.
[2019-11-15 08:00] VITALS: BP 166/97
[2019-11-15 12:04] VITALS: BP 81/48
[2019-11-15 12:05] VITALS: BP 75/48
[2019-11-15 12:06] VITALS: BP 87/54
[2019-11-15 12:11] VITALS: BP 106/67
--- NOTE | 2019-11-15 19:15 | NUR ---
PT RESTING IN BED, WATCHING TV. ANDRE UNCLAMPED PER ORDER FOR BLADDER TRAINING. YELLOW URINE DRAINING INTO CATHETER BAG. ASSISTED HIM ONTO THE BEDPAN. HE HAD A LARGE LOOSE, BROWN STOOL. CLEANED HIM UP AND DID A PARTIAL LINEN CHANGE. HE DENIES NEEDS. BED LOW AND CALL LIGHT WITHIN REACH.
[2019-11-15 20:00] VITALS: BP 110/72
[2019-11-16 08:00] VITALS: BP 150/89
--- NOTE | 2019-11-16 08:00 | NUR ---
ANDRE UNCLAMPED AND DRAINED.AFTER DRAINING FC RECLAMPED.BREAKFAST GIVEN.STATES SHINGLES PAINFUL,THER ARE CRUSTED.SHIFT ASSMT COMPLETED.
[2019-11-16 21:00] VITALS: BP 104/53
--- NOTE | 2019-11-16 21:00 | NUR ---
PATIENT RESTING WELL IN BED. CALL LIGHT WITHIN REACH. GLUCOSE LEVEL TAKEN. LOW READING OF 62. PATIENT GIVEN ORANGE JUICE TO DRINK AND PEANUT BUTTER AND CRACKERS.
--- NOTE | 2019-11-17 03:26 | NUR ---
I have reviewed this patient and I concur with the Shift Assessment completed by the Licensed Practical Nurse today this shift.
[2019-11-17 07:19] LABS: BASOPHILS 0.5 % (0-2); EOSINOPHILS 0.7 % (0-7); HEMATOCRIT 39.9 % (42.0-54.0); HEMOGLOBIN 13.1 g/dL (13.5-17.5); IMMATURE GRANULOCYTES 0.5 % (0-5); LYMPHOCYTES 18.9 % (15-50); MCH 29.2 pg (26.0-34.0); MCHC 32.8 g/dL (31.0-37.0); MCV 88.9 fL (80.0-100.0); MEAN PLATELET VOLUME 8.7 fL (7.4-10.4); MONOCYTES 6.3 % (2-11); NEUTROPHILS 73.1 % (40-80); PLATELET COUNT 311 10x3/uL (130-400); RBC 4.49 10x6/uL (4.20-6.10); RDW 14.7 % (11.5-14.5); WBC 8.5 10x3/uL (4.8-10.8)
[2019-11-17 07:29] LABS: CALC OSMOLALITY 277 mosm/kg (275-300); CALCIUM 8.9 mg/dL (8.5-10.1); CARBON DIOXIDE 30.3 mmol/L (21.0-32.0); CHLORIDE - SERUM 99 mmol/L (98-107); CREATININE - SERUM 0.8 mg/dL (0.6-1.3); GLUCOSE 167 mg/dL (74-106); POTASSIUM - SERUM 4.4 mmol/L (3.5-5.1); SODIUM 136 mmol/L (136-145); UREA NITROGEN 19 mg/dL (7-18); eGFR NON AFRICAN AMERICAN > 90 mL/min (90-120)
[2019-11-17 08:00] VITALS: BP 181/97
--- NOTE | 2019-11-17 15:36 | NUR ---
C/O PAIN TO LEFT SIDE. DRYING SCABS AND SCRATCHES NOTED. F/C PATENT WITH CLOUDY URINE. IS BEING BLADDER TRAINED. COMMUNICATES WITH SIGN LANGUAGE AND WRITES NOTES.
--- NOTE | 2019-11-17 20:00 | NUR ---
AWAKE AND ALERT. RESTING IN BED WITH RESPIRATIONS UNLABORED. ANDRE PATENT. BLADDER TRAINING ONGOING. NO ACUTE DISTRESS NOTED. DEAF, COMMUNICATES WITH PEN AND PAPER.
[2019-11-17 20:29] VITALS: BP 149/73
--- NOTE | 2019-11-18 00:27 | NUR ---
SLEEPING WITH RESPIRAITONS UNLABORED. NO DISTRESS NOTED.
--- NOTE | 2019-11-18 06:46 | NUR ---
THAI HAGEN. INSTRUCTED TO LET NURSE KNOW WHEN HE VOIDS THE FIRST TIME OR IF HE DOES NOT VOID IN FOUR HOURS. WRITTEN INSTRUCTIONS GIVEN. HE NODDED THAT HE UNDERSTANDS.
[2019-11-18 08:00] VITALS: BP 183/92
--- NOTE | 2019-11-18 08:00 | NUR ---
SITTING UP IN BED FOR BREAKFAST. HE IS DEAF AND COMMUNICATES WITH SIGN LANGUAGE AND WRITING IN NOTEBOOK. HIS LEFT SIDE CLOSE TO WAIST BAND IS COVERED IN SCABS AND DRIED BLISTERS. HE C/O PAIN TO LEFT SIDE. CALL LIGHT IN REACH
--- NOTE | 2019-11-18 12:00 | NUR ---
SITTING UP IN BED FOR LUNCH. HAS BEEN WORKING WITH THERAPY. IS WEAK AND THIN. FEEDS SELF.
--- NOTE | 2019-11-18 15:39 | NUR ---
RESTING QUIETLY IN BED. NO S/S DISTRESS. CALL LIGHT IN REACH
--- NOTE | 2019-11-18 20:00 | NUR ---
AWAKE AND ALERT. RESTING IN BED WITH RESPIRAITONS UNLABORED. VOIDING WITHOUT DIFFICULTY. SHINGLES SORES DRY WITH NO DRAINAINGE NOTED. STATES THEY ARE PAINFUL. MEDICATED WITH MOTRIN. SEE MAR. NO ACUTE DISTRESS NOTED. CALL LIGHT IN REACH.
[2019-11-18 21:12] VITALS: BP 172/90
--- NOTE | 2019-11-19 00:16 | NUR ---
SLEEPING WITH RESPIRATIONS UNLABORED. NO DISTRESS NOTED.
--- NOTE | 2019-11-19 02:55 | NUR ---
[id number] RESTING IN BED WITH EYES CLOSED AND RESPIRAITONS UNLABORED. NO DISTRESS NOTED.
[2019-11-19 06:19] LABS: BASOPHILS 0.3 % (0-2); EOSINOPHILS 0.9 % (0-7); HEMATOCRIT 38.1 % (42.0-54.0); HEMOGLOBIN 12.5 g/dL (13.5-17.5); IMMATURE GRANULOCYTES 0.4 % (0-5); LYMPHOCYTES 17.5 % (15-50); MCH 29.1 pg (26.0-34.0); MCHC 32.8 g/dL (31.0-37.0); MCV 88.8 fL (80.0-100.0); MEAN PLATELET VOLUME 9.1 fL (7.4-10.4); MONOCYTES 6.3 % (2-11); NEUTROPHILS 74.6 % (40-80); PLATELET COUNT 269 10x3/uL (130-400); RBC 4.29 10x6/uL (4.20-6.10); RDW 14.9 % (11.5-14.5); WBC 9.1 10x3/uL (4.8-10.8)
[2019-11-19 06:25] LABS: CALC OSMOLALITY 277 mosm/kg (275-300); CALCIUM 8.7 mg/dL (8.5-10.1); CARBON DIOXIDE 27.2 mmol/L (21.0-32.0); CHLORIDE - SERUM 102 mmol/L (98-107); CREATININE - SERUM 0.7 mg/dL (0.6-1.3); GLUCOSE 159 mg/dL (74-106); POTASSIUM - SERUM 4.1 mmol/L (3.5-5.1); SODIUM 136 mmol/L (136-145); UREA NITROGEN 22 mg/dL (7-18); eGFR NON AFRICAN AMERICAN > 90 mL/min (90-120)
[2019-11-19 08:00] VITALS: BP 169/83
--- NOTE | 2019-11-19 14:24 | NUR ---
Nutrition Follow-up: Chart reviewed and discussed in CM meeting. Diarrhea is better. Diet: Diabetic PO intake: ~69% average x last 4 meals. Was in therapy at time of RD visit. He had eaten 75% of breakfast and 100% of lunch. Last BM: 11/17/19. Wt: 135# (11/11/19) Meds noted: januvia, SSI, miralax, imodium (PRN) Labs noted: Glu 159(H), POC Glu 182(H) Recommend continue current diet. If diarrhea comes back, consider adding 40-50mg zinc. RD following.
--- NOTE | 2019-11-19 15:34 | NUR ---
CARE TEAM MEETING: PATIENT IS DOING WELL IN THERAPY. HIS TENATIVE DC DATE IS 11/24/19. WILL CONTINUE TO FOLLOW WITH PATIENT AND WILL ASSIST WITH DC NEEDS.
--- NOTE | 2019-11-19 19:30 | NUR ---
RECEIVED PT LYING IN BED ON RIGHT SIDE AWAKE. ALERT AND ORIENTED X4. DENIES ANY NEEDS OR PAIN. NO SIGNS OF ACUTE DISTRESS NOTED. CALL LIGHT AND WATER WITHIN REACH. FALL PRECAUTIONS IN PLACE. CPOC
[2019-11-19 20:47] VITALS: BP 178/85
--- NOTE | 2019-11-20 01:39 | NUR ---
PT LYING IN BED ON LEFT SIDE EYES CLOSED RESTING. RR EVEN AND UNLABORED. CALL LIGHT WITHIN REACH. FALL PRECAUTIONS IN PLACE. WILL CONTINUE TO MONITOR
--- NOTE | 2019-11-20 03:57 | NUR ---
ASSISTED PT TO RESTROOM WITH MIN ASSIST. INSTRUCTED TO PULL CORD FOR ASSISTANCE. PT RETURNED DEMO.
[2019-11-20 08:00] VITALS: BP 88/58
--- NOTE | 2019-11-20 19:00 | NUR ---
RECEIVED PT LYING IN BED AWAKE. ALERT AND ORIENTED X4. DENIES ANY NEEDS OR PAIN. NO SIGNS OF ACUTE DISTRESS NOTED. CALL LIGHT AND URINAL WITHIN REACH. FALL PRECAUTIONS IN PLACE. CPOC
[2019-11-20 19:49] VITALS: BP 128/69
--- NOTE | 2019-11-21 00:48 | NUR ---
PT LYING IN BED ON LEFT SIDE EYES CLOSED RESTING. RR EVEN AND UNLABORED. CALL LIGHT AND URINAL WITHIN REACH. FALL PRECAUTIONS IN PLACE. CPOC
--- NOTE | 2019-11-21 03:17 | NUR ---
PT LYING IN BED EYES CLOSED RESTING. RR EVEN AND UNLABORED. WILL CONTINUE TO MONITOR
[2019-11-21 07:50] VITALS: BP 91/53
[2019-11-21 08:00] LABS: CALC OSMOLALITY 289 mosm/kg (275-300); CALCIUM 8.8 mg/dL (8.5-10.1); CARBON DIOXIDE 30.6 mmol/L (21.0-32.0); CHLORIDE - SERUM 103 mmol/L (98-107); GLUCOSE 152 mg/dL (74-106); POTASSIUM - SERUM 3.9 mmol/L (3.5-5.1); SODIUM 142 mmol/L (136-145); UREA NITROGEN 25 mg/dL (7-18); eGFR NON AFRICAN AMERICAN 78 mL/min (90-120)
--- NOTE | 2019-11-21 08:00 | NUR ---
PATIENT IS ALERT/ORIENT. BILATERAL DEAFNESS. CALL LIGHT WITHIN REACH. VOICES NO NEEDS AT THIS TIME.
[2019-11-21 08:19] LABS: BASOPHILS 0.2 % (0-2); EOSINOPHILS 0.6 % (0-7); HEMATOCRIT 40.6 % (42.0-54.0); HEMOGLOBIN 13.4 g/dL (13.5-17.5); IMMATURE GRANULOCYTES 0.2 % (0-5); LYMPHOCYTES 10.3 % (15-50); MCV 90.8 fL (80.0-100.0); MEAN PLATELET VOLUME 8.9 fL (7.4-10.4); MONOCYTES 3.1 % (2-11); NEUTROPHILS 85.6 % (40-80); PLATELET COUNT 261 10x3/uL (130-400); RBC 4.47 10x6/uL (4.20-6.10); RDW 15.2 % (11.5-14.5); WBC 10.8 10x3/uL (4.8-10.8)
--- NOTE | 2019-11-21 10:02 | NUR ---
PATIENT IN REHAB ROOM. WORKING WITH PHYSICAL THERAPIST. DENIES ANY PAIN/DISC AT THIS TIME.
--- NOTE | 2019-11-21 19:04 | NUR ---
RECEIVED PT LYING IN BED VISITING WITH FAMILY. C/O LEFT SIDE PAIN TOO EARLY FOR MOTRIN AT THIS POINT. NO SIGNS OF ACUTE DISTRESS NOTED. FAMILY CONCERNED WITH CONTINOUS DIZZINESS AND LEANING TO LEFT SIDE. PT RELATES IT LEFT SIDED WEAKNESS. WILL DISCUSS FURTHER WITH DR. ENG. NO OTHER CONCERNS VOICED. CALL LIGHT AND WATER WITHIN REACH. FALL PRECAUTIONS IN PLACE. CPOC
--- NOTE | 2019-11-21 19:42 | NUR ---
I have reviewed this patient and I concur with the Shift Assessment completed by the Licensed Practical Nurse today this shift.
[2019-11-21 20:15] VITALS: BP 165/91
--- NOTE | 2019-11-21 23:50 | NUR ---
PT LYING IN BED ON RIGHT SIDE EYES CLOSED RESTING COMFORTABLY. RR EVEN AND UNLABORED. CALL LIGHT WITHIN REACH. FALL PRECAUTIONS IN PLACE. CPOC
--- NOTE | 2019-11-22 03:18 | NUR ---
PT LYING IN BED ON LEFT SIDE EYES CLOSED RESTING. NO SIGNS OF ACUTE DISTRESS NOTED. WILL CONTINUE TO MONITOR
--- NOTE | 2019-11-22 06:10 | NUR ---
PT LYING IN BED ON RIGHT SIDE EYES CLOSED RESTING QUIETLY. NO ACUTE CHANGES IN CONDITION NOTED THIS SHIFT. FSBS 181. EURCERIN PLACED ON LEFT BACK AND ABDOMEN FOR COMFORT. CALL LIGHT AND URNIAL WITHIN REACH. FALL PRECAUTIONS IN PLACE. WILL CONTINUE TO MONITOR
[2019-11-22 07:31] VITALS: BP 186/82
--- NOTE | 2019-11-22 10:37 | NUR ---
SITTING IN WC IN THERAPY ROOM. HAS BEEN UP IN WC FOR A WHILE. STILL HAS SCABS TO LEFT SIDE AND GRIMACES WHEN HE MOVES POINTING TO LEFT SIDE, WAIST, AND GROIN AREA.
--- NOTE | 2019-11-22 17:44 | NUR ---
SITTING UP IN BED EATING SUPPER. MOTRIN GIVEN FOR PAIN TO LEFT SIDE. DENIES NEEDS. ABLE TO MAKE NEEDS KNOWN WITH SIGN LANGUAGE AND WRITING IN NOTEBOOK. CALL LIGHT IN REACH
[2019-11-22 19:49] VITALS: BP 149/71
--- NOTE | 2019-11-22 19:56 | NUR ---
AWAKE AND ALERT. RESTING IN BED WITH RESPIRATIONS UNLABORED. NO DISTRESS NOTED AND CALL LIGHT IN REACH. COMMUICATES BY WRITING RELATED TO BEING DEAF.
--- NOTE | 2019-11-23 02:58 | NUR ---
SLEEPING WITH RESPIRATIONS UNLABORED. NO DISTRESS NOTED.
--- NOTE | 2019-11-23 05:10 | NUR ---
QUIET HOURS. NO ACUTE CHANGES IN CONDITION THIS SHIFT. RESTING IN BED WITH NO DISTRESS NOTED. CALL LIGHT IN REACH.
[2019-11-23 07:44] VITALS: BP 147/70
--- NOTE | 2019-11-23 13:12 | NUR ---
RESTING QUIETLY IN BED. HAS BEEN UP AND SHOWERED THIS MORNING. STILL C/O PAIN TO LEFT SIDE/FLANK AREA. HEALING SCABS NOTED. USES W/C FOR MOVING AROUND. LEANS TO ONE SIDE WHEN SITTING UP AND C/O DIZZINESS AT TIMES. CALL LIGHT IN REACH
[2019-11-23 19:34] VITALS: BP 162/85
--- NOTE | 2019-11-23 19:36 | NUR ---
AWAKE AND ALERT. RESTING IN BED WITH RESPIRATIONS UNLABORED. FAMILY VISITOR PRESENT. NO DISTRESS NOTED. CALL LIGHT IN REACH.
--- NOTE | 2019-11-24 02:13 | NUR ---
SLEEPING WITH RESPIRATIONS UNLABORED. NO DISTRESS NOTED.
--- NOTE | 2019-11-24 03:30 | NUR ---
CONTINUES SLEEPING. NO DISTRESS NOTED.
--- NOTE | 2019-11-24 05:00 | NUR ---
QUIET HOURS. NO ACUTE CHANGES IN CONDITION THIS SHIFT. RESTING IN BED WITH NO DISTRESS NOTED.
[2019-11-24 08:00] VITALS: BP 96/40
[2019-11-24 08:50] LABS: BASOPHILS 0.5 % (0-2); EOSINOPHILS 0.9 % (0-7); HEMATOCRIT 41.4 % (42.0-54.0); HEMOGLOBIN 13.7 g/dL (13.5-17.5); IMMATURE GRANULOCYTES 0.4 % (0-5); LYMPHOCYTES 18.9 % (15-50); MCHC 33.1 g/dL (31.0-37.0); MCV 90.6 fL (80.0-100.0); MEAN PLATELET VOLUME 8.8 fL (7.4-10.4); MONOCYTES 7.3 % (2-11); PLATELET COUNT 264 10x3/uL (130-400); RBC 4.57 10x6/uL (4.20-6.10); WBC 7.4 10x3/uL (4.8-10.8)
[2019-11-24 08:52] LABS: CALC OSMOLALITY 282 mosm/kg (275-300); CALCIUM 9.3 mg/dL (8.5-10.1); CARBON DIOXIDE 29.7 mmol/L (21.0-32.0); CHLORIDE - SERUM 100 mmol/L (98-107); CREATININE - SERUM 0.8 mg/dL (0.6-1.3); POTASSIUM - SERUM 4.7 mmol/L (3.5-5.1); SODIUM 136 mmol/L (136-145); UREA NITROGEN 24 mg/dL (7-18); eGFR NON AFRICAN AMERICAN > 90 mL/min (90-120)
[2019-11-24 08:54] LABS: GLUCOSE 225 mg/dL (74-106)
--- NOTE | 2019-11-24 13:27 | NUR ---
Nutrition Follow-up: Diet: Diabetic PO intake: ~50% x last 6 meals. Patient did not speak to me but gave me a thumbs up when I asked about his appetite. Noted that he had an open carton of Glucerna on meal tray. When I pointed to it he shook his head yes. Last BM: 11/23/19. Wt: 135# (11/11/19) Meds noted: januvia, SSI, NaCl, miralax Labs noted: Glu 225(H), POC Glu 206(H), A1c 8.8(H) Recommend continue current diet. Will add Glucerna standing order to diet order. RD following.
--- NOTE | 2019-11-24 15:20 | NUR ---
CALLED TO ROOM BY THERAPY STAFF. PT WAS WORKIGN WITH THERAPY AND SUDDENLY WENT LIMP AND APPEARED TO PASS OUT. V/S 83/51, 78, 97% ON RA. WAS MOVED TO BED, LEGS RAISED AND PT MONITORED. AT 1532 V/S WERE 118/67,86. HE WAS MORE AWAKE AND C/O HEAD ACHE. HE WAS MONITORED BY NURSING STAFF CLOSELY AND NO MORE EPISIDES OCCURED.
--- NOTE | 2019-11-24 20:00 | NUR ---
AWAKE AND ALERT. RESTING IN BED WITH RESPIRAITONS UNLABORED. BLOOD PRESSURE NOW 129/67. NO C/O DIZZINESS OR DISCOMFORT. NO DISTRESS NOTED.
[2019-11-24 20:45] VITALS: BP 129/67
--- NOTE | 2019-11-25 00:10 | NUR ---
SLEEPING WITH NO DISTRESS NOTED. CALL LIGHT IN REACH.
--- NOTE | 2019-11-25 02:54 | NUR ---
RESTING IN BED WITH EYES CLOSED AND RESPIRATIONS UNLABORED. NO DISTRESS NOTED.
--- NOTE | 2019-11-25 04:51 | NUR ---
QUIET HOURS. NO ACUTE CHANGES IN CONDITION THIS SHIFT. RESTING IN BED WITH O DISTRESS NOTED.
[2019-11-25 08:10] VITALS: BP 109/52
--- NOTE | 2019-11-25 11:10 | NUR ---
REFERRALS HAVE BEEN FAXED TO [facility] AND [facility] FOR POSSIBLE ADMISSION. WILL CONTINUE TO FOLLOW WITH PATIENT.
--- NOTE | 2019-11-25 19:00 | NUR ---
RECEIVED PT LYING IN BED ON LEFT SIDE EYES CLOSED RESTING QUIETLY. RR EVEN AND UNLABORED. NO SIGNS OF ACUTE DISTRESS NOTED. CALL LIGHT AND URINAL WITHIN REACH. FALL PRECAUTIONS IN PLACE. CPOC
[2019-11-25 19:23] VITALS: BP 141/77
--- NOTE | 2019-11-25 23:10 | NUR ---
QUIET HOURS. PT LYING IN BED ON RIGHT SIDE EYES CLOSED RESTING. RR EVEN AND UNLABORED. CALL LIGHT AND URINAL WITHIN REACH. WILL CONTINUE TO MONITOR
--- NOTE | 2019-11-26 01:48 | NUR ---
PT LYING IN BED ON LEFT SIDE EYES CLOSED RESTING. RR EVEN AND UNLABORED. WILL CONTINUE TO MONITOR
--- NOTE | 2019-11-26 04:25 | NUR ---
PT LYING IN BED ON RIGHT SIDE EYES CLOSED RESTING. NO SIGNS OF ACUTE DISTRESS NOTED. CALL LIGHT WITHIN REACH. CPOC
--- NOTE | 2019-11-26 06:18 | NUR ---
PT LYING IN BED AWAKE. DENIES ANY NEEDS. NO ACUTE CHANGES IN CONDITION NOTED THIS SHIFT. CALL LIGHT AND URINAL WITHIN REACH. FALL PRECAUTIONS IN PLACE. CPOC
[2019-11-26 08:00] VITALS: BP 136/81
--- NOTE | 2019-11-26 08:00 | NUR ---
SHIFT ASSMT COMPLETED.BREAKFAST GIVEN.CL IN REACH.
[2019-11-26] MEDS ORDERED: LOPERAMIDE HCL2 MG PO (08:25)
--- NOTE | 2019-11-26 09:48 | NUR ---
PATIENT DISCHARGING TO [facility]. HE WILL TRANSPORT THERE VIA FACILITY VAN. NO HOME HEALTH OR DME NEEDED AT THIS TIME. AN APPOINTMENT WITH DR. SANCHEZ WILL BE MADE AT TIME OF DISCHARGE FROM THE FACILITY. JOSUÉ SIGNED, IMM SERVED AND EXPLAINED, ONE GIVEN TO PATIENT AND ONE FILED IN CHART. FAMILY HAS BEEN NOTIFIED. NO COMPARE DATA REVIEWED PATIENT FAMILY LIVES NEAR TO [facility] AND THAT IS WHERE HARRIET CHOSE. DC INSTRUCTIONS FAXED TO PCP, SNF AND REVIEWED WITH PATIENT PER PRIMARY NURSE.
--- NOTE | 2019-11-26 12:00 | NUR ---
EATING LUNCH.TAKEN TO BATHROOM AND CLEANED FROM INCONT EPISODE;BM.
--- NOTE | 2019-11-26 19:00 | NUR ---
RECEIVED PT SITTING UP IN W/C. DENIES ANY PAIN. NO NEEDS VOICED. BP ELEVATED THIS EVENING. BP MEDS WERE HELD THIS AM. PT IS ASYMPTOMATIC. CALL LIGHT AND URINAL WITHIN REACH. FALL PRECAUTIONS IN PLACE. CPOC
[2019-11-26 19:52] VITALS: BP 155/87
--- NOTE | 2019-11-26 22:57 | NUR ---
PT LYING IN BED ON RIGHT SIDE EYES CLOSED RESTING. RR EVEN AND UNLABORED. CALL LIGHT AND URINAL WITHIN REACH. WILL CONTINUE TO MONITOR
--- NOTE | 2019-11-27 03:22 | NUR ---
PT LYING IN BED ON LEFT SIDE EYES CLOSED RESTING. 700ML EMPTIED FROM URINAL. RR EVEN AND UNLABORED. CALL LIGHT WITHIN REACH. WILL CONTINUE TO MONITOR
--- NOTE | 2019-11-27 05:53 | NUR ---
PT LYING IN BED ON RIGHT SIDE EYES CLOSED RESTING. NO ACUTE CHANGES IN CONDITION NOTED THIS SHIFT. CALL LIGHT AND WATER WITHIN REACH. FALL PRECAUTIONS IN PLACE. FSBS 194. CPOC
[2019-11-27 08:10] VITALS: BP 165/95
--- NOTE | 2019-11-27 15:01 | NUR ---
BEING EVALUATED BY LONG TERM. O.T. ON STAFF IS HELPING WITH SIGN LANGUAGE. PT IS COMMUNICATING WITH NOTEBOOK WITH SCREENERS AND HELP OF O.T.
--- NOTE | 2019-11-27 18:14 | NUR ---
DC TO [facility] WITH ALL PERSONAL ITEMS. INTERN PRODUCT MARKETING MANAGER CAME AFTER PT. HE LEFT FLOOR IN WC. PAPERWORK SENT WITH PT.
== END 2019-11-27 18:14 | DRG 948 ==
LOC: D.REHAB 19:09 → D.SDCHOLD 11-11 12:37 → D.REHAB 11-11 12:42
PROVIDERS: ADMIT Emergency Medicine; ATTEND Emergency Medicine
DX: R53.81 Other malaise (principal); E46 Unspecified protein-calorie malnutrition; M62.50 Muscle wasting and atrophy, not elsewhere classified, unspecified site; R53.1 Weakness; H91.90 Unspecified hearing loss, unspecified ear; K59.09 Other constipation; R42 Dizziness and giddiness; E11.65 Type 2 diabetes mellitus with hyperglycemia; R26.2 Difficulty in walking, not elsewhere classified; R50.9 Fever, unspecified; E86.0 Dehydration; E87.6 Hypokalemia; E83.42 Hypomagnesemia; R33.9 Retention of urine, unspecified; R63.4 Abnormal weight loss; H91.3 Deaf nonspeaking, not elsewhere classified

== ENCOUNTER 2019-12-18 19:58 | Inpatient (IN) | payer MEDICARE ==
[~2019-12-18] VITALS: Ht 162.6 cm; Wt 55.3 kg
--- NOTE | ~2019-12-18 | EC ---
PATIENT:MARYANN CARBAJAL DATE OF SERVICE: 12/19/19 SEX: M MEDICAL RECORD: [id number] DATE OF : [birth year] LOCATION:D. D.212 AGE OF PATIENT: 74 ADMISSION DATE: 12/19/19 REFERRING PHYSICIAN: INTERPRETING PHYSICIAN: OFELIA GARCES MD ECHOCARDIOGRAM REPORT ECHO CHARGES 4 ECHO COMPLETE Date: 12/19/19 CLINICAL DIAGNOSIS: SYNCOPE ECHOCARDIOGRAPHIC MEASUREMENTS (adult normal given) AC root (d.<3.7cm) 2.7 cm LV Septum d (<1.2 cm> 0.9 cm Valve Excursion 1.3 cm LV Septum (systole) 1.5 cm Left Atria (s.<4.0cm> 3.9 cm LVPW d(<1.2cm) 1.1 cm RV (d.<2.3cm) 2.4 cm LVPW (sytole) 1.2 cm LV diastole(<5.6CM) 5.1 cm MV E-F(>70mm/sec) cm LV systole 4.0 cm LVOT Diameter 1.6 cm MV exc.(>10mm) 0.9 cm Est.ejection fraction (50-75%) % DOPPLER: LVIT cm/sec A 108 cm/sec E 47 cm/sec LA cm/sec RVSP 18 mmHg LVOT 117 cm/sec AOP1/2T m/s Asc. Ao 124 cm/sec RVOT 66 cm/sec RA cm/sec PA 100 cm/sec AV Gradient Peak 6.2 mmHg AV Mean 3.4 mmHg AV Area 2.1 cm MV Gradient Peak 5.3 mmHg MV Mean 1.9 mmHg MV Area cm COMMENTS: Bushel Girl: Hortencia EDWARDS Nailing Machine Operator: 5 Dr. Garces TAPE# PACS Pericardial Effusion N DATE OF SERVICE: INDICATION: Syncope. INTERPRETATION: Normal left ventricular chamber size and contractile function with ejection fraction of 55% to 60%. Left atrial chamber appears normal. Right atrial and right ventricular chamber size and function appears normal. Mild thickening calcification of the aortic valve. Mild aortic sclerosis. No aortic stenosis/regurgitation. Mitral valve appears normal. No regurgitation. Tricuspid valve appears normal. No regurgitation. Pulmonic valve appears ECHOCARDIOGRAM REPORT [id number] MARYANN CARBAJAL normal. No regurgitation. No pericardial effusion visualized. IMPRESSION: Normal left ventricular chamber size and contractile function, ejection fraction 55% to 60%. TRANSINT:[id number] Voice Confirmation ID: [id number] DOCUMENT ID: [id number] OFELIA GARCES MD CC: [id number] DICTATION DATE: 12/20/19 1248 DIRECTOR MEDIA: 12/20/19 1637 ADM IN [facility] [address] [id number]
[~2019-12-18 19:58] MED LIST changes: +LOPERAMIDE HCL2 MG PO
[2019-12-18 21:40] LABS: BASOPHILS 0.2 % (0-2); EOSINOPHILS 1.2 % (0-7); HEMOGLOBIN 13.6 g/dL (13.5-17.5); IMMATURE GRANULOCYTES 0.2 % (0-5); LYMPHOCYTES 25.7 % (15-50); MCHC 34.9 g/dL (31.0-37.0); MCV 85.9 fL (80.0-100.0); MEAN PLATELET VOLUME 9.1 fL (7.4-10.4); MONOCYTES 5.5 % (2-11); NEUTROPHILS 67.2 % (40-80); PLATELET COUNT 283 10x3/uL (130-400); RBC 4.54 10x6/uL (4.20-6.10); RDW 13.9 % (11.5-14.5); WBC 8.4 10x3/uL (4.8-10.8)
[2019-12-18 21:50] LABS: CALC OSMOLALITY 270 mosm/kg (275-300); CALCIUM 9.4 mg/dL (8.5-10.1); CARBON DIOXIDE 31.7 mmol/L (21.0-32.0); CHLORIDE - SERUM 96 mmol/L (98-107); CREATININE - SERUM 0.6 mg/dL (0.6-1.3); GLUCOSE 160 mg/dL (74-106); POTASSIUM - SERUM 3.5 mmol/L (3.5-5.1); SODIUM 132 mmol/L (136-145); UREA NITROGEN 21 mg/dL (7-18); eGFR NON AFRICAN AMERICAN > 90 mL/min (90-120)
[2019-12-18 21:57] LABS: ALBUMIN 3.2 g/dL (3.4-5.0); ALKALINE PHOSPHATASE 92 U/L (30-120); ALT (SGPT) 38 U/L (10-68); BILIRUBIN - TOTAL 0.63 mg/dL (0.2-1.3)
[2019-12-19] VITALS (7 sets, daily range): BP systolic 125–182; BP diastolic 70–105
--- NOTE | 2019-12-19 00:50 | NUR ---
PT FAMILY LEFT WILL RETURN IN AM. PT RESTING EYES CLOSED RESP EVEN AND UNLABORED ON MONITOR.
[2019-12-19 02:08] LABS: CKMB 2.3 U/L (0.0-3.6); CREATINE KINASE 48 UL (21-232)
[2019-12-19 02:10] LABS: NITRITE NEGATIVE (NEGATIVE)
[2019-12-19 02:11] LABS: BILIRUBIN NEGATIVE (NEGATIVE); KETONE NEGATIVE (NEGATIVE); UROBILINOGEN NORMAL mg/dL (< 2)
[2019-12-19 02:12] LABS: BACTERIA MANY HPF (NONE SEEN); EPITHELIAL CELLS 0-5 /hpf (0-5)
--- NOTE | 2019-12-19 04:51 | NUR ---
NS +KCL 20 INFUSION STOPPED.
--- NOTE | 2019-12-19 05:00 | NUR ---
URINAL EMPTIED OF 350 ML DENIES NEEDS
[2019-12-19 06:11] LABS: APTT 25.6 SECONDS (22.8-39.4); INR 1.06 (0.85-1.17); PROTIME 13.8 SECONDS (11.6-15.0)
[2019-12-19 06:21] LABS: CKMB 2.5 U/L (0.0-3.6); CREATINE KINASE 34 UL (21-232); MAGNESIUM - SERUM 1.5 mg/dL (1.8-2.4); PRO BNP 485 pg/mL (0-125); TROPONIN-I 0.043 ng/mL (0.000-0.060)
--- NOTE | 2019-12-19 09:33 | NUR ---
CONSULT PAGED TO CARDIOLGY PAGER
[2019-12-19 10:26] LABS: CREATINE KINASE 30 UL (21-232)
[2019-12-19 11:09] LABS: CHOL - HDL RATIO 2.9 ratio (2.3-4.9); LDL-HDL RATIO 1.7 ratio (1.5-3.5)
--- NOTE | 2019-12-19 12:53 | NUR ---
Rehab Note- Acute Inpatient Rehab prescreen order received. THe patient was recently in our acute inpatient rehab unit and discharged to [facility] [place]. Has pending therapy evals at this time- will await and assess functional mobility. Thank you for this referral! Catalina Saavedra RN Clinical Liaison, [facility] Rehab
--- NOTE | 2019-12-19 16:57 | NUR ---
NORMAL SALINE INFUSION STOPPED AT 1655
--- NOTE | 2019-12-19 17:17 | NUR ---
PT TO FLOOR FROM ER VIA WHEELCHAIR. IV INFUSING. WHEELCHAIR IS APPARENTLY HIS SO LEFT IN ROOM. TELEMETRY PLACED.
[2019-12-19 17:18] LABS: CREATINE KINASE 38 UL (21-232); TROPONIN-I 0.029 ng/mL (0.000-0.060)
--- NOTE | 2019-12-19 18:22 | NUR ---
PT WITH SOME BLISTER PACKS OF MEDS FROM [facility]. NOT TAKING ALL OF THEM ANYMORE ACCORDING TO GARBAGE COLLECTION SUPERVISOR MED LIST. WILL SEE IF FAMILY CAN TAKE THEM HOME WHEN HERE.
--- NOTE | 2019-12-20 01:13 | NUR ---
PT IN BED, AAO X 2, RESP EVEN AND UNLABORED, NO DISTRESS NOTED, PT VERY HARD OF HEARING, CL IN REACH, SR UP X 2.
[2019-12-20 04:30] VITALS: BP 130/74
[2019-12-20 05:57] LABS: BASOPHILS 1.1 % (0-2); HEMATOCRIT 35.9 % (42.0-54.0); HEMOGLOBIN 12.3 g/dL (13.5-17.5); IMMATURE GRANULOCYTES 0.2 % (0-5); LYMPHOCYTES 31.1 % (15-50); MCH 29.5 pg (26.0-34.0); MCHC 34.3 g/dL (31.0-37.0); MCV 86.1 fL (80.0-100.0); MEAN PLATELET VOLUME 9.4 fL (7.4-10.4); MONOCYTES 9.4 % (2-11); NEUTROPHILS 56.2 % (40-80); PLATELET COUNT 236 10x3/uL (130-400); RBC 4.17 10x6/uL (4.20-6.10); RDW 13.9 % (11.5-14.5); WBC 5.4 10x3/uL (4.8-10.8)
--- NOTE | 2019-12-20 06:01 | NUR ---
I have reviewed this patient and I concur with the Shift Assessment completed by the Licensed Practical Nurse today this shift.
[2019-12-20 06:07] LABS: INR 1.06 (0.85-1.17); PROTIME 13.8 SECONDS (11.6-15.0)
[2019-12-20 06:12] LABS: ALBUMIN 2.7 g/dL (3.4-5.0); ALKALINE PHOSPHATASE 86 U/L (30-120); ALT (SGPT) 34 U/L (10-68); BILIRUBIN - TOTAL 0.75 mg/dL (0.2-1.3); CALC OSMOLALITY 276 mosm/kg (275-300); CALCIUM 8.7 mg/dL (8.5-10.1); CARBON DIOXIDE 27.4 mmol/L (21.0-32.0); CHLORIDE - SERUM 102 mmol/L (98-107); CREATININE - SERUM 0.6 mg/dL (0.6-1.3); GLUCOSE 187 mg/dL (74-106); MAGNESIUM - SERUM 1.4 mg/dL (1.8-2.4); POTASSIUM - SERUM 3.6 mmol/L (3.5-5.1); PROTEIN - SERUM 5.9 g/dL (6.4-8.2); SODIUM 135 mmol/L (136-145); UREA NITROGEN 17 mg/dL (7-18); eGFR NON AFRICAN AMERICAN > 90 mL/min (90-120)
[2019-12-20 08:00] VITALS: BP 140/90
--- NOTE | 2019-12-20 08:20 | NUR ---
AM MEDS GIVEN AT THIS TIME. PT RESTING COMFORTABLY IN BED, DENIES ANY NEEDS AT THIS TIME. CALL LIGHT IN REACH, NAD NOTED,W ILL CONTINUE TO MONITOR.
[2019-12-20 09:35] VITALS: BMI 21.0
--- NOTE | 2019-12-20 11:17 | NUR ---
BLOOD SUGAR OF 288, 6UNITS OF INSULIN GIVEN PER S/S. PT RESTING COMFORTABLY IN BED, DENIES ANY NEEDS AT THIS TIME. CALL LIGHT IN REACH.
[2019-12-20 11:51] VITALS: BP 170/95
[2019-12-20 12:07] VITALS: Ht 162.6 cm; Wt 55.3 kg
[2019-12-20 16:00] VITALS: BP 154/91
[2019-12-20 20:30] VITALS: BP 161/71
--- NOTE | 2019-12-20 22:07 | NUR ---
INITIAL ROUNDS COMPLTED AT 1915 HRS. PT RESTING WITH EYES CLOSED. RESP EVEN AND REGULAR. ASSESSMENT COMPLETED AT 2010 HRS. PT IS DEAF. ALERT AND ORIENTED TO PERSON, PLACE AND TIME. L SIDED WEAKNESS NOTED. IV TO LAC WITH NS AT 75CC/HR. IV PATENT. LUNGS CTA. SR PER CM HR 73. PM FSBS 225. 4 UNITS HUMALOG GIVEN SUB-Q TO UPPER R ARM. PUDDING PLACED AT BEDSIDE FOR PM SNACK. PT IS CURRENTLY RESTING WITH EYES CLOSED. RESP EVEN AND REGULAR. SR UP X2, CALL LIGHT WITHIN REACH.
[2019-12-21 00:30] VITALS: BP 187/87
--- NOTE | 2019-12-21 00:56 | NUR ---
PT RESTING WITH EYES CLOSED. RESP EVEN AND REGULAR. SR UP X2, CALL LIGHT WITHIN REACH AND BED ALARM ON.
--- NOTE | 2019-12-21 02:50 | NUR ---
PT RESTING WITH EYES CLOSED. RESP EVEN AND REGULAR. SR UP X2, CALL LIGHT WITHIN REACH AND BED ALARM ON.
[2019-12-21 04:13] VITALS: BP 179/87
--- NOTE | 2019-12-21 04:53 | NUR ---
PT RESTING WITH EYES CLOSED. RESP EVEN AND REGULAR. SR UP X2, CALL LIGHT WITHIN REACH AND BED ALARM ON.
--- NOTE | 2019-12-21 06:25 | NUR ---
VSS THROUGHOUT NIGHT. SR PER CM. PT RESTED WELL DURING SHIFT. AM FSBS 138. NO COVERAGE NEEDED. NEEDS MET; WILL CONTINUE TO MONITOR.
--- NOTE | 2019-12-21 07:00 | NUR ---
RECEIVED REPORT. ASSUMED CARE OF PATIENT. CALL LIGHT WITHIN REACH. PATIENT LYING IN BED WITH EYES OPEN. PATIENT IS DEAF. BEDSIDE SHIFT REPORT COMPLETED. WHITE BOARD UPDATED. NO DISTRESS.
[2019-12-21 07:31] LABS: BASOPHILS 0.5 % (0-2); EOSINOPHILS 1.6 % (0-7); HEMATOCRIT 35.3 % (42.0-54.0); HEMOGLOBIN 12.2 g/dL (13.5-17.5); IMMATURE GRANULOCYTES 0.4 % (0-5); LYMPHOCYTES 24.7 % (15-50); MCH 29.7 pg (26.0-34.0); MCHC 34.6 g/dL (31.0-37.0); MCV 85.9 fL (80.0-100.0); MEAN PLATELET VOLUME 9.1 fL (7.4-10.4); MONOCYTES 7.5 % (2-11); NEUTROPHILS 65.3 % (40-80); PLATELET COUNT 215 10x3/uL (130-400); RBC 4.11 10x6/uL (4.20-6.10)
[2019-12-21 07:49] LABS: ALBUMIN 2.6 g/dL (3.4-5.0); ALKALINE PHOSPHATASE 82 U/L (30-120); ALT (SGPT) 35 U/L (10-68); BILIRUBIN - TOTAL 0.69 mg/dL (0.2-1.3); CALC OSMOLALITY 276 mosm/kg (275-300); CALCIUM 8.3 mg/dL (8.5-10.1); CARBON DIOXIDE 29.2 mmol/L (21.0-32.0); CHLORIDE - SERUM 103 mmol/L (98-107); CREATININE - SERUM 0.7 mg/dL (0.6-1.3); GLUCOSE 149 mg/dL (74-106); MAGNESIUM - SERUM 1.4 mg/dL (1.8-2.4); POTASSIUM - SERUM 3.6 mmol/L (3.5-5.1); PROTEIN - SERUM 5.8 g/dL (6.4-8.2); SODIUM 137 mmol/L (136-145); UREA NITROGEN 13 mg/dL (7-18); eGFR NON AFRICAN AMERICAN > 90 mL/min (90-120)
[2019-12-21 08:46] VITALS: BP 181/95
--- NOTE | 2019-12-21 11:16 | NUR ---
FLUIDS DECREASED FROM 75 TO KVO DUE TO PATIENTS BP CONTINUES TO INCREASE.
--- NOTE | 2019-12-21 11:34 | NUR ---
FSBS 260. 6 UNITS HUMALOG ADMINISTERED PER SLIDING SCALE.
[2019-12-21 11:58] VITALS: BP 168/101
--- NOTE | 2019-12-21 16:08 | NUR ---
FSBS 276. 6 UNITS HUMALOG ADMINISTERED PER SLIDING SCALE. NO DISTRESS. EP FOR MAGNESIUM COMPLETED AT THIS TIME. LEVEL TO BE REDRAWN IN AM.
[2019-12-21 17:04] VITALS: BP 137/78
--- NOTE | 2019-12-21 19:30 | NUR ---
PT LAYING IN BED ALERT AND ORIENTED.RESP ARE EVEN .C/O ABD PAIN.ACHING.RATES PAIN A 4 ON PAIN SCALE.HEARTRATE IS REGULAR.IV WITHOUT S/S OF INFILTRATION.SAFETY MEASURES ARE IN PLACE.NO DISTRERSS NOTED.
[2019-12-21 20:30] VITALS: BP 144/75
--- NOTE | 2019-12-22 00:15 | NUR ---
PT LAYING IN BED RESTING QUETLY.RESP ARE UNLABORED.NO DISTRESS NOTED.SAFETY MEASURES ARE IN PLACE.
[2019-12-22 00:45] VITALS: BP 154/77
[2019-12-22 04:30] VITALS: BP 190/84
[2019-12-22 05:50] LABS: BASOPHILS 0.6 % (0-2); EOSINOPHILS 2.1 % (0-7); HEMATOCRIT 35.6 % (42.0-54.0); HEMOGLOBIN 12.5 g/dL (13.5-17.5); IMMATURE GRANULOCYTES 0.1 % (0-5); LYMPHOCYTES 30.3 % (15-50); MCH 30.4 pg (26.0-34.0); MCHC 35.1 g/dL (31.0-37.0); MCV 86.6 fL (80.0-100.0); MEAN PLATELET VOLUME 9.2 fL (7.4-10.4); NEUTROPHILS 58.9 % (40-80); PLATELET COUNT 221 10x3/uL (130-400); RBC 4.11 10x6/uL (4.20-6.10); RDW 13.9 % (11.5-14.5); WBC 7.1 10x3/uL (4.8-10.8)
[2019-12-22 06:02] LABS: ALBUMIN 2.6 g/dL (3.4-5.0); ALKALINE PHOSPHATASE 87 U/L (30-120); ALT (SGPT) 35 U/L (10-68); BILIRUBIN - TOTAL 0.56 mg/dL (0.2-1.3); CALC OSMOLALITY 278 mosm/kg (275-300); CALCIUM 8.6 mg/dL (8.5-10.1); CHLORIDE - SERUM 102 mmol/L (98-107); CREATININE - SERUM 0.7 mg/dL (0.6-1.3); GLUCOSE 192 mg/dL (74-106); MAGNESIUM - SERUM 1.6 mg/dL (1.8-2.4); POTASSIUM - SERUM 3.7 mmol/L (3.5-5.1); SODIUM 137 mmol/L (136-145); UREA NITROGEN 13 mg/dL (7-18); eGFR NON AFRICAN AMERICAN > 90 mL/min (90-120)
[2019-12-22 09:00] VITALS: BP 148/83
--- NOTE | 2019-12-22 19:10 | NUR ---
PT LAYING IN BED ALERT AND ORIENTED. PT IS TOTALLY DEAF.USES SIGN LANGUAGE AND WRITES MESSAGES.PT C/O PAIN TO ABD.PT STATES THAT HE HAS SHINGLES.PT RATES PAIN A 7 ON PAIN SCALE..RESP ARE EVEN ET UNLABORED.PT CAN TRANSFER WITH ASSIST.THIN FRAIL APPEARANCE..NO DISTRESS NOTED.CALLBELL IN REACH.SIDERAILS UP X2.
--- NOTE | 2019-12-22 19:45 | NUR ---
OT NOTE: PT COMPLETED BUE AROM EXS TOLERATED. PT COMPLETED SIDE ROLLING WITH TACTILE CUES. PT COMPLETED SUPINE TO SIT WITH MOD A. PT COMPLETED FACE/HAND HYGIENE WITH SETUP. [phone] LUIS ANTONIO CORONADO COTA
[2019-12-22 20:00] VITALS: BP 153/90
--- NOTE | 2019-12-22 22:02 | NUR ---
PT LAYING IN BED RESTING WITH EYES CLOSED. EASILY AROUSED.PT WITH A BLOOD SUGAR OF 134.NO INSULIN REQUIRED.PT GIVEN PM MEDS.NO DISTRESS NOTED.CALLBELL IN REACH.SIDERAILS UP X 2.
[2019-12-23] VITALS: BP 185/98
--- NOTE | 2019-12-23 00:30 | NUR ---
PT LAYING IN BED RESTING QUIETLY WITH EYES CLOSED.RESP ARE EVEN ET UNLABORED.SAFETY MEASURES ARE IN PLACE.NO DISTRESS NOTED.
[2019-12-23 04:00] VITALS: BP 166/88
--- NOTE | 2019-12-23 04:51 | NUR ---
PT LAYING IN BED EASILY AROUSED. PT WITH A BLOOD SUGAR OF 202.RESP ARE EVEN ET UNLABORED.NO DISTRESS NOTED.
[2019-12-23 06:49] LABS: BASOPHILS 0.5 % (0-2); EOSINOPHILS 3.2 % (0-7); HEMATOCRIT 35.3 % (42.0-54.0); LYMPHOCYTES 37.8 % (15-50); MCH 29.4 pg (26.0-34.0); MCV 86.5 fL (80.0-100.0); MEAN PLATELET VOLUME 9.1 fL (7.4-10.4); MONOCYTES 9.5 % (2-11); PLATELET COUNT 201 10x3/uL (130-400); RBC 4.08 10x6/uL (4.20-6.10); WBC 5.7 10x3/uL (4.8-10.8)
[2019-12-23 07:23] LABS: ALBUMIN 2.7 g/dL (3.4-5.0); ALKALINE PHOSPHATASE 85 U/L (30-120); ALT (SGPT) 35 U/L (10-68); BILIRUBIN - TOTAL 0.48 mg/dL (0.2-1.3); CALC OSMOLALITY 279 mosm/kg (275-300); CALCIUM 8.6 mg/dL (8.5-10.1); CARBON DIOXIDE 30.4 mmol/L (21.0-32.0); CHLORIDE - SERUM 103 mmol/L (98-107); CREATININE - SERUM 0.7 mg/dL (0.6-1.3); GLUCOSE 196 mg/dL (74-106); MAGNESIUM - SERUM 1.6 mg/dL (1.8-2.4); POTASSIUM - SERUM 3.8 mmol/L (3.5-5.1); PROTEIN - SERUM 5.8 g/dL (6.4-8.2); SODIUM 137 mmol/L (136-145); UREA NITROGEN 16 mg/dL (7-18); eGFR NON AFRICAN AMERICAN > 90 mL/min (90-120)
[2019-12-23 09:52] VITALS: BP 125/74
--- NOTE | 2019-12-23 14:01 | NUR ---
Nutrition Follow-up: Nursing reports pt eating well. Diet: Diabetic, Mech Soft, Glucerna TID PO intake: 75-100% Wt: 122# (12/19) Labs noted: Glu 196, Mg 1.6, Alb 2.7 Meds noted: Humalog, Protonix, NS @ 75, electrolyte protocol -Encourage PO intake and honor food preferences within diet restrictions. -Need new wt if possible; noted daily wts ordered. -RD following.
--- NOTE | 2019-12-23 15:06 | NUR ---
OT NOTE: SUPINE TO SIT WITH SBA; ABLE TO WASH FACE, HANDS, ARMS, AND LEGS WITH WASH CLOTH AND SET UP. MAX ASSIST FOR PERINEAL AREA; SET UP FOR URINAL USE. SIT TO STAND WITH MOD ASSIST. VERY POOR LE COORDINATION REQUIRING MAX/TOTAL ASSIST FOR TRANSFER TO CHAIR. BRYANNA ROMANO, OTR/L
--- NOTE | 2019-12-23 17:32 | NUR ---
OT NOTE: PT REQUIRED CGA FOR SUPINE TO SIT AT EOB. PT COMPLETED UB HYGIENE TASKS WITH SET UP TO CGA. PT EXHIBITED INCREASED ACTIVITY TOLERANCE. [phone] LUIS ANTONIO CORONADO COTA
[2019-12-23 20:00] VITALS: BP 141/69
[2019-12-24] VITALS: BP 138/85
[2019-12-24 04:00] VITALS: BP 156/79
[2019-12-24 05:40] LABS: BASOPHILS 0.5 % (0-2); EOSINOPHILS 3.3 % (0-7); HEMATOCRIT 35.1 % (42.0-54.0); IMMATURE GRANULOCYTES 0.2 % (0-5); LYMPHOCYTES 41.8 % (15-50); MCH 29.7 pg (26.0-34.0); MCHC 34.2 g/dL (31.0-37.0); MCV 86.9 fL (80.0-100.0); MEAN PLATELET VOLUME 9.2 fL (7.4-10.4); MONOCYTES 6.8 % (2-11); NEUTROPHILS 47.4 % (40-80); PLATELET COUNT 201 10x3/uL (130-400); RBC 4.04 10x6/uL (4.20-6.10); RDW 14.1 % (11.5-14.5)
[2019-12-24 06:03] LABS: ALBUMIN 2.7 g/dL (3.4-5.0); ALKALINE PHOSPHATASE 83 U/L (30-120); ALT (SGPT) 30 U/L (10-68); BILIRUBIN - TOTAL 0.52 mg/dL (0.2-1.3); CALC OSMOLALITY 278 mosm/kg (275-300); CALCIUM 8.7 mg/dL (8.5-10.1); CARBON DIOXIDE 30.8 mmol/L (21.0-32.0); CHLORIDE - SERUM 104 mmol/L (98-107); GLUCOSE 153 mg/dL (74-106); MAGNESIUM - SERUM 1.6 mg/dL (1.8-2.4); POTASSIUM - SERUM 3.7 mmol/L (3.5-5.1); PROTEIN - SERUM 5.8 g/dL (6.4-8.2); SODIUM 138 mmol/L (136-145); UREA NITROGEN 13 mg/dL (7-18)
[2019-12-24 06:07] LABS: CREATININE - SERUM 0.5 mg/dL (0.6-1.3); eGFR NON AFRICAN AMERICAN > 90 mL/min (90-120)
[2019-12-24 12:10] VITALS: BP 154/91
--- NOTE | 2019-12-24 15:44 | NUR ---
OT NOTE: MIN ASSIST FOR BED MOB; MOD ASSIST FOR SIT TO STAND WITH WALKER..MAX ASSIST WITH TRANSFERS DUE TO IMPAIRED LE COORDINATION. PERFORMS UE ACT WELL WITH SET UP.. DECREASED MOTOR CONTROL FOR LES BRYANNA ROMANO, OTR/L
--- NOTE | 2019-12-24 15:44 | NUR ---
OT NOTE: PT REQUIRED LESS PHYSICAL A TODAY. PT COMPLETED SUPINE TO SIT WITH MIN A/CGA. PT COMPLETED EOB SITTING WITH SBA/CGA. PT COMPLETED SIT TO STAND WITH MOD A. PT EXERTED INCREASED WT BEARING ON LE TODAY. PT COMPLETED TOILETING TASK WITH SETUP FOR URINAL. [phone] LUIS ANTONIO CORONADO COTA
--- NOTE | 2019-12-24 16:22 | NUR ---
ORTHOSTATICS COMPLETE. LYING 146/83. SITTING 128/70. STANDING 88/47.
[2019-12-24 17:04] VITALS: BP 146/83
--- NOTE | 2019-12-24 18:22 | MORECARE ---
CASE MANAGEMENT DISCHARGE SUMMARY PATIENT: MARYANN CARBAJAL [facility] UNIT: [id number] ADM DATE: 12/19/19 AGE: 74 : 45 SEX: M ROOM/BED: D.5154 AUTHOR: BERONICA COURTNEY PHYSICIAN: REFERRING PHYSICIAN: SREE OLIVER MD DATE OF SERVICE: 12/24/19 Discharge Plan Patient Name: MARYANN CARBAJAL Facility: [facility]:[place] : 1945 Planned Disposition: Anticipated Discharge Date: Discharge Date: Expected LOS: Initial Reviewer: [email or web address] Initial Review Date: 12/19/2019 Generated: 12/24/19 7:21 pm Comments DCP- Discharge Planning Updated by [email or web address]: Jamila Moeller on 12/24/19 5:[address] Cm attempted to reach family to complete DC planning assessment and interventions. CM called pt sonOmega at [phone]. Unable to leave a message. Cm called Magi (dtr) at [phone] and left a message for return call. CM will continue attempting family for discharge planning/needs. Jamila Moeller Patient Name: MARYANN CARBAJAL Page [phone] at 1822 All edits/amendments must be made on the electronic document DICTATION DATE: 12/24/191821 ATOMIC FUEL ASSEMBLER: GABBY 12/24/191821 RPT#: [id number] DC DATE: STATUS: ADM IN [facility] [address] [place] [address] END OF REPORT
--- NOTE | 2019-12-24 19:36 | NUR ---
RECEIVED BEDSIDE REPORT. ROUNDING COMPLETE. PATIENT RESTING COMFORTABLY IN BED. RESPIRATIONS ARE EVEN AND UNLABORED. NO S/S OF DISTRESS. NO C/O PAIN. CALL LIGHT WITHIN REACH. WILL CPOC.
[2019-12-24 20:00] VITALS: BP 161/87; BP 195/100
[2019-12-25] VITALS: BP 131/58
[2019-12-25 04:00] VITALS: BP 132/70
--- NOTE | 2019-12-25 06:34 | NUR ---
WAS ABLE TO OBTAIN ONE SET OF ORTHOSTATIC BP. SECOND AND THIRD SET PATIENT WAS ABLE TO OBTAIN LAYING AND SITTING. PATIENT WAS TO WEAK TO SAFELY STAND WITH TO STAFF ASSISTING. WIRE COATER DOCUMENTED.
[2019-12-25 07:08] LABS: BASOPHILS 0.4 % (0-2); HEMATOCRIT 34.8 % (42.0-54.0); HEMOGLOBIN 11.7 g/dL (13.5-17.5); IMMATURE GRANULOCYTES 0.3 % (0-5); LYMPHOCYTES 33.7 % (15-50); MCH 29.3 pg (26.0-34.0); MCHC 33.6 g/dL (31.0-37.0); MEAN PLATELET VOLUME 9.6 fL (7.4-10.4); NEUTROPHILS 55.6 % (40-80); PLATELET COUNT 215 10x3/uL (130-400); WBC 6.8 10x3/uL (4.8-10.8)
[2019-12-25 07:33] LABS: ALBUMIN 2.7 g/dL (3.4-5.0); ALKALINE PHOSPHATASE 85 U/L (30-120); BILIRUBIN - TOTAL 0.46 mg/dL (0.2-1.3); CALC OSMOLALITY 277 mosm/kg (275-300); CALCIUM 8.7 mg/dL (8.5-10.1); CARBON DIOXIDE 30.8 mmol/L (21.0-32.0); CHLORIDE - SERUM 102 mmol/L (98-107); CREATININE - SERUM 0.4 mg/dL (0.6-1.3); GLUCOSE 162 mg/dL (74-106); POTASSIUM - SERUM 4.1 mmol/L (3.5-5.1); PROTEIN - SERUM 5.5 g/dL (6.4-8.2); SODIUM 137 mmol/L (136-145); UREA NITROGEN 12 mg/dL (7-18); eGFR NON AFRICAN AMERICAN > 90 mL/min (90-120)
[2019-12-25 07:35] LABS: ALT (SGPT) 38 U/L (10-68)
[2019-12-25 08:42] VITALS: BP 128/71
[2019-12-25 12:48] VITALS: BP 137/67; BP 138/77
--- NOTE | 2019-12-25 12:52 | NUR ---
Nutrition Follow-up: Pt deaf. Nurse unsure how pt ate this AM, but per chart review, pt has been eating well. Awaiting placement. Diet: Diabetic, Mech Soft, Glucerna TID PO intake: 75-100% Wt: 133# (12/19) Labs noted: Glu 162, Alb 2.7 Meds noted: Florajen, Humalog, Protonix, NS @ 75, electrolyte protocol -Need new wt if possible; noted daily wts ordered. -RD following.
--- NOTE | 2019-12-25 12:54 | MORECARE ---
CASE MANAGEMENT DISCHARGE SUMMARY PATIENT: MARYANN CARBAJAL [facility] UNIT: [id number] ADM DATE: 12/19/19 AGE: 74 : 45 SEX: M ROOM/BED: D.2755 AUTHOR: BERONICA COURTNEY PHYSICIAN: REFERRING PHYSICIAN: SREE OLIVER MD DATE OF SERVICE: 12/25/19 Discharge Plan Patient Name: MARYANN CARBAJAL Facility: [facility]:[place] : 1945 Planned Disposition: Anticipated Discharge Date: Discharge Date: Expected LOS: Initial Reviewer: [email or web address] Initial Review Date: 12/19/2019 Generated: 12/25/19 1:53 pm Comments DCP- Discharge Planning Updated by [id number]: Jamila Moeller on 12/24/19 5:[address] Cm attempted to reach family to complete DC planning assessment and interventions. CM called pt Omega villanueva at [phone]. Unable to leave a message. Cm called Magi (dtr) at [phone] and left a message for return call. CM will continue attempting family for discharge planning/needs. Jamila Moeller External Providers External Provider: [facility] Next Contact Date: Service Request Date: Service Type: Resolution: Reviewer: Comments: Puma DP export: 12/24/19 5:22 Patient Name: MARYANN CARBAJAL Page [phone] at 1254 All edits/amendments must be made on the electronic document DICTATION DATE: 12/25/19 1259 BOILERMAKER SHIP: GABBY 12/25/19 1250 RPT#: [id number] DC DATE: STATUS: ADM IN [facility] [address] [place] [address] END OF REPORT
--- NOTE | 2019-12-25 14:04 | NUR ---
OT NOTE: BED MOB WITH MIN ASSIST; SITTING BALANCE ON EOB WITH GOOD STATIC SITTING; SIMPLE GROOMING TASKS WITH SET UP. BRYANNA ROMANO, OTR/L
--- NOTE | 2019-12-25 16:02 | MORECARE ---
CASE MANAGEMENT DISCHARGE SUMMARY PATIENT: MARYANN CARBAJAL [facility] UNIT: [id number] ADM DATE: 12/19/19 AGE: 74 : 45 SEX: M ROOM/BED: D.1824 AUTHOR: BERONICA COURTNEY PHYSICIAN: REFERRING PHYSICIAN: SREE OLIVER MD DATE OF SERVICE: 12/25/19 Discharge Plan Patient Name: MARYANN CARBAJAL Facility: [facility]:[place] : 1945 Planned Disposition: Anticipated Discharge Date: Discharge Date: Expected LOS: Initial Reviewer: [email or web address] Initial Review Date: 12/19/2019 Generated: 12/25/19 5:02 pm Comments DCP- Discharge Planning Updated by [email or web address]: Jamila Moeller on 12/24/19 5:[address] Cm attempted to reach family to complete DC planning assessment and interventions. CM called pt sonOmega at [phone]. Unable to leave a message. Cm called Magi (dtr) at [phone] and left a message for return call. CM will continue attempting family for discharge planning/needs. Jamila Moeller Last DP export: 12/25/19 11:54 Patient Name: MARYANN CARBAJAL Page [phone] at 1602 All edits/amendments must be made on the electronic document DICTATION DATE: 12/25/19 160 WEBSPHERE ADMINISTRATOR: GABBY 12/25/19 160 RPT#: [id number] DC DATE: STATUS: ADM IN [facility] [address] [place] [address] END OF REPORT
[2019-12-25 18:05] VITALS: BP 142/76
[2019-12-25 20:00] VITALS: BP 164/97
--- NOTE | 2019-12-25 20:26 | NUR ---
REPORT RECEIVED. WILL CONTINUE WITH POC. PT CURRENTLY LYING SEMI FOWLERS. CALL LIGHT W/I REACH. FALL PRECAUTIONS IN PLACE. FAMILY AT BEDSIDE. RR EVEN AND UNLABORED ON RA. NO S/S OF DISTRESS NOTED. NS INFUSING @KVO VIA L.FOR PIV. PT IS AAO. PM MEDICATIONS ADMININSTERED WITH NO S/S OF DIFFICULTY. FSBS WAS 238 AND TREATED PER PROTOCOL. PT DENIES ANY NEEDS AT THIS TIME. WILL CTM.
[2019-12-26 04:00] VITALS: BP 172/82
[2019-12-26 07:29] VITALS: BP 156/83
--- NOTE | 2019-12-26 09:37 | NUR ---
PATIENT IS SITTING UP IN BED THIS AM. ASSESSMENT COMPLETED , VITALS TAKEN. NAD NOTED. CALL LIGHT IN REACH
[2019-12-26 10:27] LABS: BASOPHILS 0.5 % (0-2); EOSINOPHILS 1.4 % (0-7); HEMATOCRIT 35.9 % (42.0-54.0); HEMOGLOBIN 12.1 g/dL (13.5-17.5); IMMATURE GRANULOCYTES 0.3 % (0-5); LYMPHOCYTES 23.7 % (15-50); MCH 29.8 pg (26.0-34.0); MCHC 33.7 g/dL (31.0-37.0); MCV 88.4 fL (80.0-100.0); MEAN PLATELET VOLUME 8.9 fL (7.4-10.4); MONOCYTES 6.5 % (2-11); NEUTROPHILS 67.6 % (40-80); PLATELET COUNT 191 10x3/uL (130-400); RBC 4.06 10x6/uL (4.20-6.10); WBC 6.3 10x3/uL (4.8-10.8)
--- NOTE | 2019-12-26 10:37 | NUR ---
PATIENT C/O SEVERE ABD PAIN AND HEAD PAIN. NURSE GIVES PATIENT 650 TYLENOL. CALL LIGHT IN REACH
[2019-12-26 10:42] LABS: ALBUMIN 2.7 g/dL (3.4-5.0); ALKALINE PHOSPHATASE 86 U/L (30-120); ALT (SGPT) 46 U/L (10-68); BILIRUBIN - TOTAL 0.51 mg/dL (0.2-1.3); CALCIUM 8.7 mg/dL (8.5-10.1); CHLORIDE - SERUM 99 mmol/L (98-107); POTASSIUM - SERUM 4.7 mmol/L (3.5-5.1); PROTEIN - SERUM 5.6 g/dL (6.4-8.2); SODIUM 137 mmol/L (136-145); UREA NITROGEN 13 mg/dL (7-18)
[2019-12-26 10:45] LABS: CALC OSMOLALITY 286 mosm/kg (275-300); CREATININE - SERUM 0.7 mg/dL (0.6-1.3); GLUCOSE 329 mg/dL (74-106); eGFR NON AFRICAN AMERICAN > 90 mL/min (90-120)
[2019-12-26] MEDS ORDERED: Levaquin PO (11:26)
[2019-12-26] MEDS ORDERED: NEURONTIN 300300 MG PO (11:26)
[2019-12-26] MEDS ORDERED: PROTONIX40 MG PO (11:27)
[2019-12-26] MEDS ORDERED: FLORAJEN3 CAPS460 MG PO (11:27)
--- NOTE | 2019-12-26 13:57 | MORECARE ---
CASE MANAGEMENT DISCHARGE SUMMARY PATIENT: MARYANN CARBAJAL [facility] UNIT: [id number] ADM DATE: 12/19/19 AGE: 74 : 45 SEX: M ROOM/BED: D.0274 AUTHOR: BERONICA COURTNEY PHYSICIAN: REFERRING PHYSICIAN: SREE OLIVER MD DATE OF SERVICE: 12/26/19 Discharge Plan Patient Name: MARYANN CARBAJAL Facility: [facility]:[place] : 1945 Planned Disposition: Anticipated Discharge Date: Discharge Date: Expected LOS: Initial Reviewer: [email or web address] Initial Review Date: 12/19/2019 Generated: 12/26/19 2:56 pm DCP- Discharge Planning Updated by [email or web address]: Jamila Moeller on 12/24/19 5:[address] Cm attempted to reach family to complete DC planning assessment and interventions. CM called pt sonOmega at [phone]. Unable to leave a message. Cm called Magi (dtr) at [phone] and left a message for return call. CM will continue attempting family for discharge planning/needs. Jamila Moeller Last DP export: 12/25/19 3:02 Patient Name: MARYANN CARBAJAL Page [phone] at 1357 All edits/amendments must be made on the electronic document DICTATION DATE: 12/26/19 1356 LETTERPRESS SETTER: GABBY 12/26/19 1356 RPT#: [id number] DC DATE: STATUS: ADM IN [facility] [address] [place] [address] END OF REPORT
--- NOTE | 2019-12-26 14:13 | MORECARE ---
CASE MANAGEMENT DISCHARGE SUMMARY PATIENT: MARYANN CARBAJAL [facility] UNIT: [id number] ADM DATE: 12/19/19 AGE: 74 : 45 SEX: M ROOM/BED: D.8278 AUTHOR: BERONICA COURTNEY PHYSICIAN: REFERRING PHYSICIAN: SREE OLIVER MD DATE OF SERVICE: 12/26/19 Discharge Plan Patient Name: MARYANN CARBAJAL Facility: [facility]:[place] : 1945 Planned Disposition: Anticipated Discharge Date: Discharge Date: Expected LOS: Initial Reviewer: [email or web address] Initial Review Date: 12/19/2019 Generated: 12/26/19 3:13 pm DCP- Discharge Planning Updated by [email or web address]: Jamila Moeller on 12/24/19 5:[address] Cm attempted to reach family to complete DC planning assessment and interventions. CM called pt Omega villanueva at [phone]. Unable to leave a message. Cm called Magi (dtr) at [phone] and left a message for return call. CM will continue attempting family for discharge planning/needs. Jamila Moeller External Providers External Provider: [facility] Next Contact Date: Service Request Date: Service Type: Resolution: Reviewer: Comments: Last DP export: 12/26/19 12:57 Patient Name: MARYANN CARBAJAL Page [id number] at 1413 All edits/amendments must be made on the electronic document DICTATION DATE: 12/26/191412 SUPERVISOR CARDING: GABBY 12/26/191412 RPT#: [id number] DC DATE: STATUS: ADM IN [facility] [address] [place] [address] END OF REPORT
--- NOTE | 2019-12-26 17:54 | NUR ---
OT NOTE: (DOS 12/25/2019) PT COMPLETED SUPINE TO SIT WITH CGA. PT COMPLETED SIT TO STAND WITH MIN/MOD A. PT COMPLETED BUE AROM EXS TOLERATED AT EOB WITH CGA. [phone] LUIS ANTONIO CORONADO COTA
--- NOTE | 2019-12-26 19:36 | NUR ---
OT NOTE: PT COMPLETED SUPINE TO SIT WITH SBA. PT COMPLETED EOB SITTING BALANCE WITH SPV. PT C/O STOMACH PAIN AN DIZZINESS. NURSING NOTIFIED. [phone] THANK YOU,DOMINIQUE LU
--- NOTE | 2019-12-26 20:09 | MORECARE ---
CASE MANAGEMENT DISCHARGE SUMMARY PATIENT: MARYANN CARBAJAL [facility] UNIT: [id number] ADM DATE: 12/19/19 AGE: 74 : 45 SEX: M ROOM/BED: D.4480 AUTHOR: BERONICA COURTNEY PHYSICIAN: REFERRING PHYSICIAN: SREE OLIVER MD DATE OF SERVICE: 12/26/19 Discharge Plan Patient Name: MARYANN CARBAJAL Facility: [facility]:[place] : 1945 Planned Disposition: Anticipated Discharge Date: Discharge Date: 12/26/2019 Expected LOS: Initial Reviewer: [email or web address] Initial Review Date: 12/19/2019 Generated: 12/26/19 9:09 pm Comments DCP- Discharge Planning Updated by [email or web address]: Jamila Moeller on 12/26/19 7:[address] Cm met with pt son in room stating he would like pt to go to Ip rehab at [facility]. ABHYA signed and placed on the chart. CM faxed referral per request and spoke with Marcy. Marcy reviewed clinicals and accepted pt into IP rehab. Pt will be transported by [facility] rehab van. The helper driver will case picker pt at 5:30 pm. Nursing can call report to [phone]. DC IMM delivered, explained, signed by the patient, and placed in chart. Signed form also left with the patient. Jamila Moeller DCP- Discharge Planning Updated by [email or web address]: Jamila Moeller on 12/24/19 5:[address] Cm attempted to reach family to complete DC planning assessment and interventions. CM called pt sonOmega at [phone]. Unable to leave a message. Cm called Magi (dtr) at [phone] and left a message for return call. CM will continue attempting family for discharge planning/needs. Jamila Moeller Coverage Notice Reviewer: [id number] - Jamila Moeller Notice Issued Date-Time: 12/26/2019 11:00 Notice Type: IM Discharge Notice Notice Delivered To: Patient Relationship to Patient: Self Tool Repair Technician Name: Delivery Method: HAND - Hand Delivered Shania Days: Prior Verbal Notification: Recipient Understood Notice: Yes Recipient Signature: Yes Med Rec Note Co-signed by Attending: Coverage Notice Comment: DC IMM DELIVERED Reviewer: [email or web address] Gaby Moeller Notice Issued Date-Time: 12/25/2019 14:30 Notice Type: Patient Choice Letter Notice Delivered To: Family Member Relationship to Patient: Son Tool Repair Technician Name: Omega Delivery Method: PHONE - Phone Shania Days: Prior Verbal Notification: Yes Recipient Understood Notice: Yes Recipient Signature: Med Rec Note Co-signed by Attending: Coverage Notice Comment: abhay for ip rehab at [facility] DP export: 12/26/19 1:13 Patient Name: MARYANN CARBAJAL Page [id number] at 2008 All edits/amendments must be made on the electronic document DICTATION DATE: 12/26/192008 MANAGER SHAREPOINT: GABBY 12/26/192008 RPT#: [id number] DC DATE:12/26/19 STATUS: DIS IN [facility] [address] [place] [address] END OF REPORT
--- NOTE | 2019-12-29 09:25 | MORECARE ---
CASE MANAGEMENT DISCHARGE SUMMARY PATIENT: MARYANN CARBAJAL [facility] UNIT: [id number] ADM DATE: 12/19/19 AGE: 74 : 45 SEX: M ROOM/BED: D.3293 AUTHOR: BERONICA COURTNEY PHYSICIAN: REFERRING PHYSICIAN: SREE OLIVER MD DATE OF SERVICE: 12/29/19 Discharge Plan Patient Name: MARYANN CARBAJAL Facility: [facility]:[place] : 1945 Planned Disposition: Anticipated Discharge Date: Discharge Date: 12/26/2019 Expected LOS: Initial Reviewer: [email or web address] Initial Review Date: 12/19/2019 Generated: 12/29/19 10:24 am Comments DCP- Discharge Planning Updated by [email or web address]: Jamila Moeller on 12/26/19 7:[address] Cm met with pt son in room stating he would like pt to go to Ip rehab at [facility]. ABHAY signed and placed on the chart. CM faxed referral per request and spoke with Marcy. Marcy reviewed clinicals and accepted pt into IP rehab. Pt will be transported by [facility] rehab van. The owner operator tanker truck driver will picker tender helper pt at 5:30 pm. Nursing can call report to [phone]. DC IMM delivered, explained, signed by the patient, and placed in chart. Signed form also left with the patient. Jamila Moeller DCP- Discharge Planning Updated by [email or web address]: Jamila Moeller on 12/24/19 5:[address] Cm attempted to reach family to complete DC planning assessment and interventions. CM called pt sonOmega at [phone]. Unable to leave a message. Cm called Magi (dtr) at [phone] and left a message for return call. CM will continue attempting family for discharge planning/needs. Jamila Moeller Coverage Notice Reviewer: [id number] - Jamila Moeller Notice Issued Date-Time: 12/26/2019 11:00 Notice Type: IM Discharge Notice Notice Delivered To: Patient Relationship to Patient: Self Veneer Jointer Helper Name: Delivery Method: HAND - Hand Delivered Shania Days: Prior Verbal Notification: Recipient Understood Notice: Yes Recipient Signature: Yes Med Rec Note Co-signed by Attending: Coverage Notice Comment: DC IMM DELIVERED Reviewer: [id number] Gaby Moeller Notice Issued Date-Time: 12/25/2019 14:30 Notice Type: Patient Choice Letter Notice Delivered To: Family Member Relationship to Patient: Son Veneer Jointer Helper Name: Omega Delivery Method: PHONE - Phone Shania Days: Prior Verbal Notification: Yes Recipient Understood Notice: Yes Recipient Signature: Med Rec Note Co-signed by Attending: Coverage Notice Comment: abhay for ip rehab at [facility] export: 12/26/19 7:09 Patient Name: MARYANN CARBAJAL Page [phone] at 0925 All edits/amendments must be made on the electronic document DICTATION DATE: 12/29/19923 RADIO STATION MANAGER: GABBY 12/29/19923 RPT#: [id number] DC DATE:12/26/19 STATUS: DIS IN [facility] [address] [place] [address] END OF REPORT
== END 2019-12-26 17:57 | DRG 947 ==
LOC: D.ER 19:58 → D.M2 12-19 00:42 → D.EDHOLD 12-19 00:42 → D.M2 12-19 16:42
PROVIDERS: Emergency Medicine; ADMIT Family Medicine; ATTEND Family Medicine
DX: R53.1 Weakness (principal); E43 Unspecified severe protein-calorie malnutrition; E87.1 Hypo-osmolality and hyponatremia; N39.0 Urinary tract infection, site not specified; B02.29 Other postherpetic nervous system involvement; I95.1 Orthostatic hypotension; E11.65 Type 2 diabetes mellitus with hyperglycemia; K59.00 Constipation, unspecified; H91.90 Unspecified hearing loss, unspecified ear; R62.7 Adult failure to thrive; Z68.21 Body mass index [BMI] 21.0-21.9, adult; E86.1 Hypovolemia